=== PATIENT | female | born 1930 | race Caucasian/White ===

== ENCOUNTER 2016-09-08 05:58 | Inpatient (IN) | payer MEDICARE, BC ==
--- NOTE | ~2016-09-08 | HP ---
Unit #: [id number] #: [id number] Patient: CATHY MELLO [id number] [address] [place], [place] [address] [id number] MR#: [id number] NAME: CATHY MELLO ROOM: 547 Age: 86 Sex: F Admission Date: 09/08/2016 : 1930 Attending Physician: Maureen Mcgee M.D. Primary Care Physician: Calderon Fernandez M.D. HISTORY AND PHYSICAL CHIEF COMPLAINT Shortness of breath. HISTORY OF PRESENT ILLNESS Ms. Mello is a very nice 86-year-old female, well known to me, who presents to the [facility] ER this morning with complaints of shortness of breath. The patient states she had been feeling fine since last discharged from this facility on August 13. However, yesterday, particularly at nighttime, she started noting that she was feeling increasingly short of breath. She denies any fever or sick contacts prior to yesterday. She had not had any cough. She denies any new lower extremity edema. She denies any chest pain or palpitations. She states that maybe she has had some orthopnea for the last day or two. However, last night it became significantly worse. She presented to [facility] ER where she was found to have an elevated blood pressure of 228/93. O2 sats were probably low normal with 95% on 2 L of oxygen per nasal cannula. She was afebrile. Examination per ER records indicate the patient had significant crackles in the bases and BNP was found to be elevated at 463. The patient was given 40 mg of IV Lasix, given nitro paste and referred to this facility for CHF. She states she is feeling a bit better after the dose of Lasix. Again, she denies any fever, any sick contacts. She hasn't had any nausea, vomiting or diarrhea. No dysuria, no hematuria and has not had any falls since June. PAST MEDICAL HISTORY 1. Chronic systolic congestive heart failure. Heart cath done last month reveals an ejection fraction of 40% to 45%. 2. Coronary artery disease. Again, heart cath last month revealed proximal/distal LAD had multiple overlapping stents which were all patent. There is 50% stenosis of the diagonal at the ostium. In left circumflex, there was a 50% to 60% stenosis. In the RCA, there was a prior stent which was patent. 3. Hypertension. 4. COPD. 5. Diabetes mellitus type 2, insulin requiring. 6. Chronic kidney disease stage 3 with baseline creatinine approximately 1.1. 7. Stage 4 breast cancer with known involvement of the left iliac bone and right axillary lymph node. 8. Restless leg syndrome. 9. Chronic pain syndrome, maintained on narcotics. 10. Spinal stenosis. 11. Mild memory loss. 12. Obstructive sleep apnea. Unit #: [id number] #: [id number] Patient: CATHY MELLO 13. Obesity. PAST SURGICAL HISTORY Includes: 1. Multiple heart caths, most recent as noted above. 2. 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 3. Cholecystectomy. 4. Hysterectomy. 5. Right hip replacement. ALLERGIES Phenothiazine, penicillin, dextromethorphan, promethazine, morphine. MEDICATIONS Home medications for this list include: 1. Aspirin 81 mg daily. 2. Imdur ER 30 mg daily. 3. Nitrostat 0.4 mg sublingual q.5 minutes p.r.n. for chest pain. 4. Pepcid AC 20 mg b.i.d. 5. Pravachol 80 mg at bedtime. 6. Symbicort 160/4.5 mcg, two puffs twice daily p.r.n. for shortness of breath. 7. Ventolin inhaler, two puffs five times daily p.r.n. for shortness of breath. 8. Vitamin C 500 mg p.o. b.i.d. 9. Daily multivitamin. 10. Mirapex 1 mg p.o. t.i.d. 11. Aldactone 25 mg daily. 12. Vitamin B12 1000 mcg p.o. daily. 13. Lisinopril 20 mg p.o. b.i.d. p.r.n. 14. Neurontin 100 mg at bedtime p.r.n. 15. Letrozole 2.5 mg daily p.r.n. 16. MiraLAX 17 g p.o. daily p.r.n. 17. Brilinta 90 mg p.o. b.i.d. p.r.n. 18. [place] one tablet every six hours p.r.n. for pain. 19. Levemir 25 units subcutaneously each morning. 20. Tylenol 325 mg q.6 hours p.r.n. for pain or fever. I will note that these meds, particularly the p.r.n.'s do not match what was on discharge summary from August 2016, at which point several of these medications were not meant to be p.r.n., namely her Brilinta, her lisinopril, her Symbicort, and her Femara. FAMILY HISTORY Notable for coronary artery disease. SOCIAL HISTORY The patient resides with her at [facility] in [facility]. She does not smoke, she does not drink, she doesn't use any illicit drugs. REVIEW OF SYSTEMS The patient denies any vision changes, any sore throat, denies any fever, denies any significant weight change. Again, denies any chest pain. Does endorse some orthopnea but denies any PND. No reflux, no abdominal pain, no constipation, diarrhea, melena or hematochezia. Denies any falls. Otherwise, ten point review of systems was reviewed and is negative with exception of HPI. Unit #: [id number] #: [id number] Patient: CATHY MELLO PHYSICAL EXAMINATION VITAL SIGNS: Temperature 98.8, blood pressure 167/72, pulse rate 66, respiratory rate 23. Oxygen saturation is in the mid 90s on 2 L of oxygen per nasal cannula. GENERAL: The patient is awake, she is alert. She is oriented x3 currently. HEENT: Pupils equally round, reactive to light bilaterally. Anicteric sclerae. Mild conjunctival pallor. Oropharynx reveals some mildly dry mucous membranes. No erythema or exudate. NECK: Supple. No lymphadenopathy, no thyromegaly, no JVD. HEART: Regular rate and rhythm without murmur, rub or gallop. LUNGS: Crackles in the bases bilaterally but otherwise clear without wheezing. ABDOMEN: Soft, nontender, nondistended. Positive bowel sounds. Perhaps mildly distended. EXTREMITIES: No cyanosis, clubbing, or edema. Pedal pulses 2/4. SKIN: Warm. It is dry on all four extremities. There is no obvious rash. MUSCULOSKELETAL: Prior right transmetatarsal amputation noted but otherwise no significant joint abnormalities grossly. There is no erythema, no purulence. NEUROLOGICAL: Cranial nerves II-XII intact. Sensation, strength and deep tendon reflexes are all grossly normal. Gait was not assessed. PSYCHIATRIC: Again, alert and oriented x3. No suicidal or homicidal ideation. DIAGNOSTIC STUDIES CARDIOVASCULAR: EKG done at [facility] reveals normal sinus rhythm with Q wave in V1 only. No other acute ST or T wave abnormalities. This EKG is unchanged from a prior EKG of August 04/2017. LABORATORY: Lab work reveals a white blood cell count of 9.5, hemoglobin 9.9, platelet count of 284,000. Sodium 127, potassium 3.3, chloride 93, bicarb 33, BUN 22, creatinine 0.8, glucose of 138. Calcium mildly low at 8.1. Otherwise, LFTs are all normal. BNP elevated at 463. Initial troponin is negative. IMAGING: Chest x-ray done at [facility] shows cardiomegaly and bibasilar small pleural effusions with associated encephalization. ASSESSMENT 1. Acute on chronic systolic congestive heart failure with ejection fraction of 40% to 45%. 2. Hypertensive urgency which may be a precipitating factor for her congestive heart failure. 3. Hyponatremia, likely hypervolemic in origin. 4. Hypokalemia. 5. Acute respiratory failure secondary to pulmonary edema. 6. Hypocalcemia. 7. History of coronary artery disease. 8. Stage 4 breast cancer, currently being maintained on oral chemotherapy. 9. Chronic obstructive pulmonary disease. 10. History of chronic kidney disease. 11. Diabetes mellitus type 2, insulin requiring. 12. Restless leg syndrome. Unit #: [id number] #: [id number] Patient: CATHY MELLO 13. Hyperlipidemia. PLAN 1. Will admit patient to telemetry. 2. I will place patient on IV Lasix which will hopefully improve respiratory status. I am also going to add a low dose of beta delia, namely her Coreg, and monitor her pulse rate closely. Will continue JASPREET inhibitor scheduled rather than p.r.n. and continue patient's Aldactone. If she has any complications, I will contact cardiology. 3. Will again reinitiate patient's lisinopril in regards to her hypertension, add a low dose Coreg, keep her on Lasix and Aldactone and monitor blood pressure closely. 4. Will follow up sodium level later today with BMP and again check in the morning as well. 5. Will place patient on K-mag protocol and replace potassium which is high risk for remaining low given her IV Lasix. 6. Will place patient on calcium supplementation. 7. Will titrate O2 for sats greater than or equal to 90%. I do think patient has some underlying obstructive sleep apnea and should use her oxygen at night and needs outpatient polysomnography. 8. Will continue medications for COPD including Symbicort scheduled b.i.d. Will also provide Duo-Neb nebulizer treatments q.6 hours p.r.n. for shortness of breath. 9. Continue home medications for coronary artery disease, breast cancer, diabetes and restless leg syndrome in addition to hyperlipidemia. 10. Lovenox for DVT prophylaxis. Dictated by Olga Zuluaga M.D. CHARLENE/robert TD: 09/08/2016 09:55 JOB #: [id number] HISTORY AND PHYSICAL X Olga Zuluaga MD HISTORY AND PHYSICAL
--- NOTE | ~2016-09-08 | CR72 ---
[facility]. [facility] A Service of [facility] & [facility] / [facility] RADIOLOGY TEXT RESULTS PATIENT: CATHY MELLO LOCATION: [facility] 547- : 32 UNIT #: [id number] AGE: [address]: Maureen Mcgee MD SEX: F ORDER DR: [id number] [address] [address] [id number] MR#: [id number] Acc #: [id number] NAME: CATHY MELLO : 1930 SEX: F STUDY DATE/TIME: 09/08/2016 5:47 UNIT: SED ROOM: STUDY DESCRIPTION: CR Chest Single View Portable Attending Physician: Aldo Lisa M.D. Ordering Physician: Aldo Lisa M.D. Primary Care Physician: Calderon Fernandez M.D. MEDICAL IMAGING REPORT This report is preliminary unless electronic signature is present. EXAM Portable chest. HISTORY Shortness of air for one day. COMPARISON 08/10/2016 FINDINGS Today's portable view of the chest shows new bilateral lower lobe infiltrates and atelectasis and there is stable mild cardiomegaly. The upper lobes are clear. Dictated by... Daniel Varma M.D. THIS IS AN ELECTRONICALLY VERIFIED REPORT Daniel Varma M.D. at 09/08/2016 2:16 PM HUMZA/kaden TD: 09/08/2016 08:48 JOB #: [id number] MEDICAL IMAGING REPORT
--- NOTE | ~2016-09-08 | EKG ---
PATIENT: CATHY MELLO UNIT #: [id number] Ventricular Rate: 72 BPM Atrial Rate: 150 BPM QRS Duration: 98 ms Q-T Interval: 412 ms QTC Calculation(Bezet): 451 ms Calculated R [place]: 3 degrees Calculated T [place]: 143 degrees Diagnosis Line: Unusual P axis, possible ectopic atrial rhythm Diagnosis Line: ST and T wave abnormality, consider lateral ischemia Diagnosis Line: Abnormal ECG Diagnosis Line: When compared with ECG of 13-AUG-2016 10:26, Diagnosis Line: Current undetermined rhythm precludes rhythm Diagnosis Line: comparison, needs review Diagnosis Line: Confirmed by DARRELL SAUNDERS MD ([id number]) on 09/08/2016 Diagnosis Line: 5:37:33 PM INTERPRETING MD: NICKY SHARIF
--- NOTE | ~2016-09-08 | DS ---
Unit #: [id number] #: [id number] Patient: CATHY MELLO [id number] [address] [address] [id number] I MR#: [id number] NAME: CATHY MELLO ROOM: 547 Age: 86 Sex: F Admission Date: 09/08/2016 : 1930 Discharge Date: 09/09/2016 Attending Physician: Olga Zuluaga M.D. Primary Care Physician: Calderon Fernandez M.D. DISCHARGE SUMMARY PRIMARY CARE PROVIDER Dr. Fernandez. PRINCIPAL DIAGNOSES 1. Acute on chronic systolic congestive heart failure with ejection fraction of 40% to 45%. 2. Severe hypertensive urgency. 3. Hypervolemic hyponatremia, now resolved. 4. Acute hypoxic respiratory failure secondary to acute on chronic systolic congestive heart failure, now resolved. 5. Hypokalemia. 6. B12 deficiency of vitamin B12 level of 246. 7. Chronic anemia. 8. Stage IV breast cancer, maintained on oral chemotherapy. 9. Chronic obstructive pulmonary disease. 10. Chronic nocturnal hypoxia, maintained on oxygen at 2 L per nasal cannula continuously. 11. Coronary artery disease. 12. Hypocalcemia. 13. Chronic kidney disease, stage 3. Discharge creatinine 0.8. 14. Diabetes mellitus, type 2, insulin requiring, controlled. 15. Restless legs syndrome. 16. Hyperlipidemia. 17. Chronic immobility. 18. Gastroesophageal reflux disease. 19. Mild memory loss with questionable medication compliance. CONSULTANTS None. PROCEDURES Chest x-ray on 09/08/2016 with bilateral lower lobe infiltrate and atelectasis with stable cardiomegaly. CLINICAL HISTORY AND HOSPITAL COURSE Ms. Mello is a very nice 86-year-old female, who presented to the emergency department with an abrupt onset of shortness of breath. In the emergency department, the patient was found have significant crackles on exam and BNP was elevated at 463. The patient was subsequently admitted. The patient was placed on IV Lasix and this morning, states she feels quite a bit better. She has had a traumatic urine output. She states she Unit #: [id number] #: [id number] Patient: CATHY MELLO has been drinking a little bit more water at home than normal. She thinks this has precipitated this event. She states she is also taking Lasix at home, but interestingly enough it did not make her medication list nor is it listed in discharge medications from her discharge in early 08/2016. I am going to place her back on Lasix. We will have to monitor potassium level closely. She is on JASPREET inhibitor at home. It is unclear whether she is taking this scheduled or p.r.n. which was listed in her med rec and she is also on the spironolactone; however, she still came in hyperkalemic. I am going to place her on a low dose of potassium and we can have potassium checked early next week. Only the significant finding during hospitalization is that she is B12 deficient at 246. I am going to place her on oral supplementation and she may benefit from injections in the office. Hemoglobin upon presentation appeared to be at patient's baseline of 9.9, however, today with diuresis, this is down to 8.2. I am going to recheck hemoglobin later today to ensure that it is stable and/or to determine if morning lab was an error. I have also noted that hyponatremia resolved with diuresis. DISCHARGE CONDITION Stable. DISCHARGE STATUS Discharged to home with home health. She has an RN for blood pressure monitoring and lab draws and she has PT/OT. DISCHARGE MEDICATIONS Ventolin inhaler 2 puffs q.i.d. p.r.n. for shortness of breath, oxygen at 2 L per nasal cannula at bedtime, Symbicort 160/4.5 mcg 2 puffs b.i.d., Neurontin 100 mg at bedtime, letrozole 2.5 mg daily, Mirapex 1 g p.o. t.i.d., MiraLAX 17 g p.o. daily p.r.n. for constipation, Lasix 40 mg p.o. b.i.d., Pravachol 80 mg at bedtime, lisinopril 20 mg b.i.d., Levemir 25 units subcutaneously each morning, daily multivitamin, aspirin 81 mg daily, [place] 5/325 one tablet p.o. q.6 hours p.r.n. for pain, Brilinta 90 mg p.o. b.i.d., spironolactone 25 mg daily, Os-Angus 500 plus D one b.i.d., Imdur ER 30 mg daily, nitroglycerin 0.4 mg sublingual q.5 minutes p.r.n. for chest pain, vitamin C 500 mg b.i.d., vitamin B12 1000 mcg p.o. daily, potassium chloride 20 mEq p.o. daily. DISCHARGE INSTRUCTIONS The patient was instructed to follow a heart healthy, 1800 mL fluid restricted diet. She should also monitor her carbohydrate intake. She should continue Accu-Cheks at least b.i.d. at home, one fasting and one 2 hours postprandial to monitor insulin dosing. She can increase her activity as tolerated under the care of physical and occupational therapy. She should perform daily weights at home as well. FOLLOWUP The patient needs followup basic metabolic panel on 09/12/2016 to monitor potassium levels. This can be faxed either to my office or to the patient's primary care provider. She should follow up with Cardiology as previously determined in early 08/27/2016. She will follow up with Dr. Fernandez in 3 weeks. Time spent on discharge 37 minutes. Unit #: [id number] #: [id number] Patient: CATHY MELLO Dictated by... Olga Zuluaga M.D. CHARLENE/armando TD: 09/11/2016 05:05 JOB #: [id number] DISCHARGE SUMMARY X Olga Zuluaga MD X DISCHARGE SUMMARY
[2016-09-08 05:47] LABS: BASOPHIL# 0.1 X10e3 (0-0.3); BASOPHIL% 0.7 % (0-2.5); EOSINOPHIL# 0.3 X10e3 (0-0.7); EOSINOPHIL% 2.8 % (0.0-7.0); HEMATOCRIT 30.6 % (35.0-45.0); HEMOGLOBIN 9.9 gm/dL (12.0-16.0); LYMPHOCYTE# 0.9 X10e3 (1.0-3.5); LYMPHOCYTE% 9.5 % (17.0-45.0); MEAN CELL VOLUME 87.5 FL (83-96); MEAN CORPUSCULAR HEMOGLOBIN 28.4 PG (28-34); MEAN CORPUSCULAR HGB CONC 32.5 g/dL (30-36); MEAN PLATELET VOLUME 7.1 FL (6.5-11.5); MONOCYTE# 0.4 X10e3 (0-1.0); MONOCYTE% 4.4 % (3.0-12.0); NEUTROPHIL# 7.9 X10e3 (1.5-7.1); NEUTROPHIL% 82.6 % (40-75); PLATELET COUNT 284 X10e3 (140-420); RED CELL DISTRIBUTION WIDTH 17.3 % (11.0-15.5); WHITE BLOOD COUNT 9.5 X10e3 (4.0-10.5)
[2016-09-08 05:48] LABS: DIFF IND NO
[2016-09-08 05:51] LABS: INR 1.1; PROTHROMBIN TIME (PATIENT) 11.9 SECONDS (9.5-12.4)
[~2016-09-08 05:58] MED LIST: ACETAMINOPHEN PO; ACTOSPLUSMET; ALBUTEROL17 GM INH; ALDACTONE25 MG PO; AMARYL PO; AMLODIPINE BESY10 MG PO; AMLODIPINE BESYL5 MG PO; APRESOLINE10 MG PO; ASPIR-TRIN325 MG PO; ASPIRIN EC81 M1 PO; ASPIRIN ENTERI325 M1 PO; ASPIRIN PO; ASPIRIN81 MG PO; ATENOLOL PO; ATENOLOL25 MG PO; ATENOLOL50 MG PO; AVANDIA PO; AZITHROMYCIN500 MG PO; BENADRYL ANTI-I85 GM TOP; BRILINTA90 MG PO; CERTAVITE W/LUT1 TA1 PO; CLOPIDOGREL75 MG PO; COREG6.25 MG PO; CYANOCOBALAM1000 MCG PO; DARVOCET-N 1001 TAB PO; DESENEX45 G1 EXT; ENDOCET 5-3251 EACH PO; FEMARA2.5 MG PO; FLEXERIL PO; FLORANEX T1 TAB.CHE3 PO; GLUCOPHAGE XR500 MG PO; GLUCOPHAGE500 M1 PO; GLUCOPHAGE850 MG PO; GNP THERAPEUTI1 EACH PO; HCTZ PO; HUMALOG100 U/M1 SUBQ; HYDRALAZINE HCL10 MG PO; ILEVRO1.7 ML OP; IMDUR PO; IMDUR-ER30 M1 PO; IMDUR-ER30 MG PO; IMDUR120 MG PO; ISOSORBIDE MON120 M1 PO; K-LOR20 MEQ PO; KEFLEX500 M1 PO; LANTUS SOLOSTAR3 ML SUBQ; LASIX PO; LASIX20 MG PO; LASIX80 MG PO; LEVAQUIN750 MG PO; LEVEMIR SUBQ; LISINOPRIL PO; LISINOPRIL20 MG PO; LORTAB 5/500 TA1 TA1 PO; MEDROL DOSEPAK4 MG PO; MELATONIN1 MG PO; MERREM1 G/VIA1 IV; METFORMIN HCL850 MG PO; MIRALAX119 GM PO; MIRALAX17 GM PO; MIRAPEX PO; MIRAPEX1 MG PO; NEURONTIN100 MG PO; NIACIN500 M1 PO; NIASPAN PO; NIASPAN750 MG PO; NITRO PUMP SL; NITROGLYGERIN0.4 MG SL; NITROGYLCERIN SUBLINGUAL; NITROSTAT0.4 MG SL; NORCO1 TAB 10/3 PO; NORVASC PO; NOVOLIN 70/30 V10 M1 SUBQ; NOVOLIN 70100 UNITS/; NOVOLIN 70100 UNITS/ SUBQ; PATIENT'S PHARMACY; PEPCID AC20 M2 PO; PERCOCET PO; PERCOCET5/325 PO; PLAVIX PO; PRAMIPEXOLE DIHY1 MG PO; PRAVACHOL80 MG PO; PRAVASTATIN SOD40 MG PO; PRED FORTE1 ML OP; PREDNISONE10 MG/DOSE PO; PRINIVIL40 MG PO; PROAIR HFA8.5 GM IH; PROVENTIL; RANEXA PO; REQUIP1 MG PO; REQUIP2 MG PO; SIMVASTATIN40 MG PO; SOF-LAX100 MG PO; SPIRONOLAC1 TAB 25/2 PO; SYMBICORT INH; TAMIFLU75 M1 PO; TENORMIN50 MG PO; TYL325 PO; TYLENOL325 M1 PO; VIBRAMYCIN100 M1 PO; VIGAMOX3 M1 OP; VITAMIN A TOP; VITAMIN C500 MG PO; VYTORIN 10/10 T1 TAB PO; ZESTORETIC 20/21 TAB PO; ZESTRIL2.5 M1 PO; ZESTRIL40 MG PO; ZITHROMAX PO; ZOCOR PO; ZOFRAN PO; ZYVOX600 MG PO; [UNRECOGNIZED DRUG - OTHER] TOP
[2016-09-08 05:59] LABS: PARTIAL THROMBOPLASTIN TIME 30.6 SECONDS (25.6-38.1)
[2016-09-08 06:03] LABS: ALBUMIN SERUM 3.6 g/dL (3.5-5.0); ALKALINE PHOSPHATASE 122 U/L (32-92); ALT (SGPT) 22 U/L (10-40); AST (SGOT) 22 U/L (10-42); BILIRUBIN,TOTAL 0.8 mg/dL (0.2-2.0); BLOOD UREA NITROGEN 22 mg/dL (9-23); CALCIUM SERUM 8.1 mg/dL (8.4-10.2); CARBON DIOXIDE 33 mmol/L (22-31); CHLORIDE 93 mmol/L (100-111); CREATININE SERUM 0.8 mg/dL (0.6-1.4); GLOM FILT RATE Estimated ABOVE60 mL/min (>60); GLUCOSE FASTING 138 mg/dL (70-110); POTASSIUM 3.3 mmol/L (3.5-5.1); PROTEIN TOTAL SERUM 7.7 g/dL (6.0-8.3); SODIUM 127 mmol/L (135-145)
[2016-09-08 06:04] LABS: BILIRUBIN, DIRECT <0.1 mg/dL (0.0-0.2); BILIRUBIN,INDIRECT 0.7 mg/dL (0.0-0.9)
[2016-09-08 06:26] LABS: POC - CKMB 1.6 ng/mL (0.0-7.9); POC - MYOGLOBIN 72.6 ng/mL (0.0-169.0); POC - TROPONIN <0.05 ng/mL (<=0.05)
[2016-09-08 14:55] LABS: BLOOD UREA NITROGEN 24 mg/dL (9-23); BUN/CREATININE RATIO 26.66; CALCIUM SERUM 8.5 mg/dL (8.4-10.2); CARBON DIOXIDE 35 mmol/L (22-31); CHLORIDE 101 mmol/L (100-111); CREATININE SERUM 0.9 mg/dL (0.6-1.4); GLOM FILT RATE Estimated ABOVE60 mL/min (>60); GLUCOSE FASTING 181 mg/dL (70-110)
[2016-09-08 14:57] LABS: SODIUM 140 mmol/L (135-145)
[2016-09-08 15:16] LABS: MAGNESIUM 2.1 mg/dL (1.6-3.0)
[2016-09-09 06:14] LABS: HEMATOCRIT 25.1 % (35.0-45.0); HEMOGLOBIN 8.2 gm/dL (12.0-16.0); MEAN CELL VOLUME 88.2 FL (83-96); MEAN CORPUSCULAR HEMOGLOBIN 28.8 PG (28-34); MEAN CORPUSCULAR HGB CONC 32.7 g/dL (30-36); MEAN PLATELET VOLUME 7.7 FL (6.5-11.5); RED BLOOD COUNT 2.85 X10e (3.90-5.30); RED CELL DISTRIBUTION WIDTH 16.9 % (11.0-15.5); WHITE BLOOD COUNT 7.8 X10e3 (4.0-10.5)
[2016-09-09 06:39] LABS: BLOOD UREA NITROGEN 26 mg/dL (9-23); CALCIUM SERUM 8.8 mg/dL (8.4-10.2); CARBON DIOXIDE 34 mmol/L (22-31); CHLORIDE 100 mmol/L (100-111); CREATININE SERUM 0.8 mg/dL (0.6-1.4); GLOM FILT RATE Estimated ABOVE60 mL/min (>60); GLUCOSE FASTING 88 mg/dL (70-110); MAGNESIUM 2.1 mg/dL (1.6-3.0); POTASSIUM 3.5 mmol/L (3.5-5.1); SODIUM 141 mmol/L (135-145)
[2016-09-09] MEDS ORDERED: KLOR-CON PO (11:27)
[2016-09-09] MEDS ORDERED: FUROSEMIDE40 MG PO (11:27)
[2016-09-09] MEDS ORDERED: COREG3.125 MG PO (11:27)
[2016-09-09 12:32] LABS: HEMATOCRIT 28.2 % (35.0-45.0); HEMOGLOBIN 9.4 gm/dL (12.0-16.0)
[2016-09-09] MEDS ORDERED: CALCIUM 500 +1 EAC5 PO (13:05)
[2016-10-13] MEDS ORDERED: PROAIR HFA8.5 GM (21:28)
[2016-10-13] MEDS ORDERED: ASPIRIN81 MG PO (21:29)
[2016-10-13] MEDS ORDERED: SYMBICORT 16010.2 GM INH (21:29)
[2016-10-13] MEDS ORDERED: OS-CAL 500500 MG PO (21:30)
[2016-10-13] MEDS ORDERED: CARVEDILOL6.25 MG PO (21:30)
[2016-10-13] MEDS ORDERED: CLOPIDOGREL75 MG PO (21:30)
[2016-10-13] MEDS ORDERED: LASIX20 MG PO (21:31)
[2016-10-13] MEDS ORDERED: NEURONTIN PO (21:31)
[2016-10-13] MEDS ORDERED: AMARYL2 MG PO (21:32)
[2016-10-13] MEDS ORDERED: TOUJEO SOL300 UNIT/1 SUBQ (21:33)
[2016-10-13] MEDS ORDERED: NOVOLOG100 UNIT/1 SUBQ (21:33)
[2016-10-13] MEDS ORDERED: LEVEMIR100 UNITS/ SUBQ (21:33)
[2016-10-13] MEDS ORDERED: FEMARA2.5 MG PO (21:34)
[2016-10-13] MEDS ORDERED: LISINOPRIL20 MG PO (21:34)
[2016-10-13] MEDS ORDERED: IMDUR-ER30 M1 PO (21:34)
[2016-10-13] MEDS ORDERED: HUMALOG100 UNIT/2 (21:34)
[2016-10-13] MEDS ORDERED: NITROSTAT0.4 MG SL (21:35)
[2016-10-13] MEDS ORDERED: MIRAPEX1 MG PO (21:35)
[2016-10-13] MEDS ORDERED: K-TAB ER20 MEQ PO (21:35)
[2016-10-13] MEDS ORDERED: PRAVACHOL80 MG PO (21:36)
[2016-10-13] MEDS ORDERED: MAGIC BARRIER CREAM TOP (21:36)
[2016-10-13] MEDS ORDERED: ALDACTONE25 MG PO (21:36)
[2016-10-13] MEDS ORDERED: MINERALS PO (21:37)
[2016-10-13] MEDS ORDERED: VITAMIN C PO (21:37)
[2016-10-13] MEDS ORDERED: VITAMIN PO (21:37)
== END 2016-09-09 17:29 | disposition home health service (06) | DRG 291 ==
LOC: SED 05:58 → C5B 09:40
PROVIDERS: Emergency Medicine; Internal Medicine
DX: I50.23 Acute on chronic systolic (congestive) heart failure (principal); J96.01 Acute respiratory failure with hypoxia; E86.1 Hypovolemia; E87.1 Hypo-osmolality and hyponatremia; E11.22 Type 2 diabetes mellitus with diabetic chronic kidney disease; E53.8 Deficiency of other specified B group vitamins; C50.919 Malignant neoplasm of unspecified site of unspecified female breast; I13.0 Hypertensive heart and chronic kidney disease with heart failure and stage 1 through stage 4 chronic kidney disease, or unspecified chronic kidney disease; I16.0 Hypertensive urgency; E87.6 Hypokalemia; D64.9 Anemia, unspecified; J44.9 Chronic obstructive pulmonary disease, unspecified; I25.10 Atherosclerotic heart disease of native coronary artery without angina pectoris; E83.51 Hypocalcemia; N18.3 Chronic kidney disease, stage 3 (moderate); G25.81 Restless legs syndrome; E78.5 Hyperlipidemia, unspecified; D63.1 Anemia in chronic kidney disease; K21.9 Gastro-esophageal reflux disease without esophagitis; G89.4 Chronic pain syndrome; G47.33 Obstructive sleep apnea (adult) (pediatric); E66.9 Obesity, unspecified; Z88.0 Allergy status to penicillin; Z88.5 Allergy status to narcotic agent; Z88.8 Allergy status to other drugs, medicaments and biological substances; Z90.710 Acquired absence of both cervix and uterus; Z79.4 Long term (current) use of insulin
CPT/HCPCS: 51703; 71010; 80048; 80076; 82553; 82607; 82947; 83540; 83550; 83735; 83874; 83880; 84484; 85014; 85018; 85025; 85027; 85610; 85730; 93005; 94640; 94760; 96374; 97110; 97116; 97162; 97165; 97530; 99291; G8978-GP; G8979-GP; G8987-GO; G8988-GO; G8989-GO; J1650; J1815; J1940

== ENCOUNTER 2016-10-13 22:29 | Inpatient (IN) | payer MEDICARE, BC ==
--- NOTE | ~2016-10-13 | HP ---
Unit #: [id number] #: [id number] Patient: CATHY MELLO [id number] [address] [place], [place] [address] [id number] I MR#: [id number] NAME: CATHY MELLO ROOM: 567 Age: 86 Sex: F Admission Date: 10/13/2016 : 1930 Attending Physician: Maureen Mcgee M.D. Primary Care Physician: Calderon Fernandez M.D. HISTORY AND PHYSICAL CHIEF COMPLAINT Decompensated congestive heart failure with acute hypoxic respiratory failure, uncontrolled diabetes mellitus, and accelerated hypertension. HISTORY This pleasant 86-year-old female with ischemic cardiomyopathy, AODM, hypertension, COPD, is admitted for congestive heart failure. The patient states that she was in her usual state of health until this afternoon. Apparently her lungs were clear earlier in the day. This afternoon she developed sudden onset of shortness of breath. Also notes increasing pedal edema. Denies chest pain with the above. When EMS arrived, the patient's O2 saturation was 60%. She was given nebulizer, further oxygen, and was brought to this emergency department with an O2 sat of 69% on oxygen. BiPAP was immediately placed. The patient's blood pressure was noted to be 193/91 and she was given 40 mg of IV Lasix along with an inch of nitro paste with improvement of her blood pressure. Her serum glucose was 435 and she was given supplemental insulin. She currently is feeling much improved. I have been able to remove her BiPAP. Exam and chest x-ray consistent with congestive heart failure. Again, the patient denies chest pain with the above. PAST MEDICAL HISTORY 1. Ischemic cardiomyopathy, ejection fraction about 35%. Cardiac catheterization 08/2016 revealed proximal/distal LAD had multiple overlapping stents which were all patent. 50% stenosis of diagonal of the ostium. In the circumflex, there was 50% to 60% stenosis, patent stent in the RCA. 2. Hypertension. 3. COPD. 4. AODM requiring insulin. 5. Chronic kidney disease with GFR of about 40s to 50s. 6. Stage 4 breast cancer with known involvement of the left iliac bone and right axillary lymph node. 7. Restless leg syndrome. 8. Chronic pain syndrome. 9. Spinal stenosis. 10. Mild memory loss. 11. Obstructive sleep apnea. 12. 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 13. Cholecystectomy. 14. Hysterectomy. 15. Right hip replacement. Unit #: [id number] #: [id number] Patient: CATHY MELLO 16. Cataract extraction. 17. Right arm surgery. ALLERGIES Phenergan, penicillin, dextromethorphan, sulfa. The patient is not allergic to morphine, it just does not help her pain. HOME MEDICATIONS 1. Albuterol as needed. 2. Aspirin 81 mg daily. 3. Symbicort 160/4.5, two puffs b.i.d. 4. Os-Angus daily. 5. Coreg 6.25 mg b.i.d. 6. Plavix 75 mg daily. 7. Lasix 40 mg, two in the morning, one in the evening. 8. Neurontin 100 mg q. h.s. 9. Amaryl 2 mg q. a.m. 10. Levemir q. h.s. 11. Medium sliding scale Humalog. 12. Imdur 30 mg daily. 13. Femara 2.5 mg daily. 14. Lisinopril 20 mg daily. 15. Nitroglycerin p.r.n. chest pain. 16. Potassium 20 mEq daily. 17. Mirapex 1 mg t.i.d. 18. Pravachol 80 mg daily. 19. Spironolactone 25 mg daily. 20. Vitamins. FAMILY HISTORY CAD. SOCIAL HISTORY The patient lives with her at [facility]. She is a lifelong nonsmoker, does not drink alcohol. REVIEW OF SYSTEMS Notable for sudden shortness of breath, pedal edema, congestive heart failure, ischemic cardiomyopathy, hypertension, COPD, AODM, chronic kidney disease, breast cancer, restless leg syndrome, LISA, above mentioned surgeries. All other systems were reviewed and are negative. PHYSICAL EXAMINATION GENERAL APPEARANCE: Pleasant 86-year-old female who currently is in no acute distress. VITAL SIGNS: Temperature 99.6, initial heart rate 114, currently is 80, respirations 22. Initial blood pressure 193/91, currently is 146/61. Current O2 saturation is 90% on 4 L of oxygen. Initial O2 saturation was 69% on room air. HEENT: Eyes PERRLA. Extraocular muscles are intact. Pharynx is benign. NECK: Supple without adenopathy or thyromegaly. Elevated JVD. CHEST: Crackles bilaterally. CARDIAC: Normal S1 and S2 without definite murmur. ABDOMEN: Bowel sounds are present. No hepatosplenomegaly, tenderness or masses. EXTREMITIES: Notable for bilateral edema, status post transmetatarsal right foot with clean, dry stump. No ulcers left foot. NEUROLOGIC EXAM: The patient is awake, alert, oriented. Cranial nerves Unit #: [id number] #: [id number] Patient: CATHY MELLO are intact. Equal strength throughout but weak on exam. DIAGNOSTIC STUDIES LABORATORY: Hematocrit 32.4 which is improved. White blood cell count is 12.8. Normal MCV and platelet count. SMA-12 - glucose 435, BUN 47, alkaline phos. 142. BNP 515. Cardiac markers are negative. IMAGING: Chest x-ray - cardiomegaly, congestive heart failure. CARDIOVASCULAR: EKG - sinus tachycardia, rate 102 with T wave inversions, I and AVL. Somewhat poor R wave progression. Q's noted III and AVF. ASSESSMENT 1. Decompensated systolic congestive heart failure with acute hypoxic respiratory failure: Of note, the patient's initial ABG - pH 7.35, pCO2 55.6, pO2 90.5 on BiPAP 12/5. However, O2 saturation is 90% to 91% on 4 L of oxygen. She is breathing much easier after nitro paste and Lasix. 2. Accelerated hypertension, now improved. 3. Ischemic cardiomyopathy with patent stents noted last cardiac catheterization, ejection fraction about 35%. 4. Uncontrolled adult onset diabetes mellitus. 5. Accelerated hypertension. 6. Chronic obstructive pulmonary disease. 7. Chronic kidney disease. 8. Metastatic breast cancer, considered stage 4. 9. Restless leg syndrome. 10. Peripheral vascular disease. 11. Obstructive sleep apnea. PLANS 1. IV Lasix. Will continue to obtain I's and O's and daily weights along with serial cardiac enzymes and consultation with edge beader. 2. Diabetic control. 3. Obtain urinalysis. 4. DVT prophylaxis. 5. Repeat all labs in the morning. Dictated by Maureen Mcgee M.D. ROSALBA/robert TD: 10/14/2016 05:07 JOB #: [id number] Unit #: [id number] #: [id number] Patient: CATHY MELLO HISTORY AND PHYSICAL Page 1 of 1 X Maureen Mcgee MD HISTORY AND PHYSICAL
--- NOTE | ~2016-10-13 | CO ---
Unit #: [id number] #: [id number] Patient: CATHY MELLO [id number] [address] [place], [place] [address] [id number] I MR#: [id number] NAME: CATHY MELLO ROOM: 567 Age: 86 Sex: F Admission Date: 10/13/2016 : 1930 Attending Physician: Nataly Contreras M.D. Primary Care Physician: Calderon Fernandez M.D. Consultation Date: 10/14/2016 CONSULTATION REPORT REASON FOR CONSULT Congestive heart failure. HISTORY OF PRESENT ILLNESS This is a pleasant 86-year-old female who typically follows with Dr. Thapa. She has a past medical history of known coronary artery disease with stents, diastolic heart failure, COPD, hypertension, diabetes mellitus, hyperlipidemia, chronic kidney disease, paroxysmal atrial fibrillation and breast cancer, which is stage IV with iliac bone metastasis. The patient is followed by Dr. Andrade and is on letrozole. According to the patient, she was in her typical state of health at home until yesterday. She states home health [facility] had been seeing her, had been out earlier in the day, and the patient was doing okay. Her lungs were clear. However, around 4 p.m. in the afternoon, the patient developed sudden onset shortness of breath. States she was gasping for air. She denied any complaints of palpitations, chest pain, orthopnea or PND. She does report she has been noticing some lower extremity swelling and increasing fatigue over the last few days. EMS was called. On arrival to the emergency room, the patient's oxygen saturations were in the 60s. She was given increased oxygen and nebulizer treatment. Also started on BiPAP. At that time her blood pressure was elevated, and she was given a onetime dose of IV Lasix with some nitro paste. On admission she was also found to have an elevated blood glucose of 435. Chest x-ray was performed and was consistent with congestive heart failure. EKG was performed, which shows sinus rhythm at 102 beats per minute, incomplete right bundle branch block. There is approximately 0.[address] segment depression in the inferolateral leads. The patient denies any complaints of chest pain. Izwdw-ad-pifs troponin, thus far, has been negative. Of note, the patient underwent cardiac catheterization on August 12, 2016 and was found to have a left main that was normal. LAD with multiple overlapping stents, which were patent. The diagonal 2 and 3 had a 50% stenosis, left circumflex had a 50% to 60% stenosis, and the RCA had a patent stent. Posterior lateral branch of distal RCA has 80% stenosis. Vessel size is small, not suitable for PCI. She also had a two-D echocardiogram 08/11/2016, which showed an LVEF of 30% to 35%, impaired relaxation, ggxy-co-tptxaxrz mitral regurgitation with Unit #: [id number] #: [id number] Patient: CATHY MELLO jet, mild tricuspid regurgitation with an RVSP of 41 mmHg. We were asked to see for medical management of her congestive heart failure. PAST MEDICAL HISTORY 1. Hypertension. 2. Known coronary artery disease with multiple stents placed. 3. Cardiac cath, 08/12/2016, showed left main normal, LAD with multiple overlapping stents, which were patent. The diagonal 2 and 3 with 50% stenosis. Left circumflex 50% to 60%. RCA stent was patent. Posterior lateral branch of distal RCA has 80% stenosis. Vessel size is small, not suitable for PCI. 4. Two-D echocardiogram, 08/11/16, showed LVEF of 30% to 35%, impaired relaxation, olxa-mz-byavcnuj mitral regurgitation with jet, mild tricuspid regurgitation with an RVSP of 41 mmHg. 5. COPD. 6. Diabetes mellitus. 7. Hyperlipidemia. 8. Chronic kidney disease. 9. Ischemic cardiomyopathy. 10. 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 Andrade. 11. Chronic pain syndrome. 12. Obstructive sleep apnea. PAST SURGICAL HISTORY 1. Cardiac catheterization. 2. 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 3. Cholecystectomy. 4. Hysterectomy. 5. Right hip replacement. 6. Cataract surgery. 7. Right arm surgery. ALLERGIES Phenergan (tremors), penicillin, dextromethorphan and sulfa. HOME MEDICATIONS 1. ProAir HFA. 2. Aspirin 81 mg daily. 3. Symbicort 160/4.5 mcg 2 puffs inhalation b.i.d. 4. Os-Angus 500 mg p.o. daily. 5. Carvedilol 6.25 mg p.o. b.i.d. 6. Plavix 75 mg p.o. daily. 7. Lasix 40 mg p.o. daily. 8. Neurontin 100 mg p.o. q.h.s. 9. Amaryl 2 mg p.o. at breakfast. 10. NovoLog as needed. 11. Levemir 25 units subcu at bedtime. 12. Toujeo subcu. 13. Humalog sliding scale. 14. Imdur 30 mg p.o. daily. 15. Letrozole 2.5 mg p.o. daily. 16. Lisinopril 20 mg p.o. daily. 17. Nitrostat sublingual as needed. 18. Potassium chloride 20 mEq p.o. daily. 19. Mirapex 1 mg p.o. t.i.d. 20. Pravachol 80 mg p.o. daily. 21. Aldactone 25 mg p.o. daily. Unit #: [id number] #: [id number] Patient: CATHY MELLO 22. Magic Barrier Cream topical as needed. 23. Ascorbic acid 500 mg p.o. b.i.d. 24. Vitamin 1 tab p.o. daily. FAMILY HISTORY Denies coronary artery disease in her family. However, the patient does have some problems with memory. She reports her mother had diabetes mellitus. SOCIAL HISTORY The patient lives with her at [facility]. She is a lifelong nonsmoker. Denies illicit drugs or alcohol. REVIEW OF SYSTEMS Review of systems is negative except for what was stated above in the HPI. PHYSICAL EXAM GENERAL: This is a pleasant 86-year-old elderly female who is currently in no acute distress. VITAL SIGNS: Temperature max 99.6, respiratory rate 18-20, pulse 78, blood pressure 124/93 to 154/54, BMI 27. She is currently on 4 liters nasal cannula with saturation 94%. HEENT: Pupils are equal and round. Extraocular muscles are intact. Pharynx is benign. Mucous membranes are moist. NECK: Supple. Positive JVD. Trachea is midline. No lymphadenopathy. HEART: S1, S2. Systolic murmur best heard at the apex. CHEST: Clear anterior. Crackles bilaterally. ABDOMEN: Soft, nontender, nondistended. Bowel sounds are present. EXTREMITIES: Positive for bilateral lower extremity edema. No clubbing or cyanosis. NEUROLOGIC: She is awake, alert and oriented. Does have some short-term memory issues. Moves all extremities equally. Follows commands with ease. DIAGNOSTIC STUDIES LABORATORY: Hemoglobin 9.4, hematocrit 29.4, WBC 9.4, platelet count 203. Sodium 139, potassium 3.1, chloride 100, CO2 29, BUN 43, creatinine 1.1, glucose 265, magnesium 1.9. Initial bihdx-rg-jnci troponin was 0.05, repeat troponin is 0.67. BNP was 515. IMAGING: Chest x-ray shows cardiomegaly, decrease in pleural fluid, evidence of pulmonary vascular congestion and interstitial edema with left perihilar infiltrate. Most likely, construction representative of congestive heart failure. CARDIOVASCULAR: EKG shows normal sinus rhythm, rate of 102 beats per minute. Incomplete right bundle branch block. ST segment depression, approximately 0.5 mm, in the inferolateral leads. IMPRESSION 1. Acute on chronic systolic and diastolic congestive heart failure. Last known EF was 30% to 35%. 2. Acute hypoxic respiratory failure. 3. Non-ST elevation IL. Initial troponin was 0.05. Repeat troponin is 0.67. The patient recently underwent cardiac catheterization in August. See above for results. Could be related to supply-demand issue. 4. Hypokalemia. 5. History of paroxysmal atrial fibrillation, currently in normal sinus Unit #: [id number] #: [id number] Patient: CATHY MELLO rhythm with frequent PACs. 6. Hypertension. 7. Hyperlipidemia. 8. Diabetes mellitus. 9. Chronic kidney disease. 10. Breast cancer, stage IV, with iliac bone metastasis, on letrozole, followed by Dr. Andrade. 11. Accelerated hypertension. 12. COPD. PLAN 1. The patient was admitted for acute on chronic exacerbation of her congestive heart failure. Her initial cardiac enzymes were negative; however, repeat enzymes showed troponin of 0.67. This could be related to her acute hypoxic event; however, will follow and trend cardiac enzymes. 2. She will continue on diuresis with Lasix 60 mg IV b.i.d. Will also replace her potassium. Will add a magnesium level to blood in lab and also check a TSH. Will also draw a fasting lipid panel. She will get repeat EKG in the a.m. At present the patient is currently on a heparin drip. This will be discontinued, and she will be started on Lovenox 1 mg/kg subcu daily. 3. Will also put her on fluid restriction, low-sodium diet, daily weights and monitoring of accurate I's and O's. 4. The patient did recently undergo cardiac catheterization in August 2016, which showed left main normal, LAD with multiple overlapping stents, which were patent. The diagonal 2 and 3 had 50% stenosis. Left circumflex 50% to 60% and RCA stent that was patent. Posterior lateral branch of distal RCA has 80% stenosis. Vessel size is small, not suitable for PCI. At this point, would suggest continuing conservative medical management and monitoring the patient closely. She will be continued on aspirin, beta-delia, Plavix, diuretics, nitrates, high-dose statin therapy and JASPREET. Will also ask for cardiac rehab consult. Further recommendations pending Dr. Baker's assessment. Dictated by... Mora Garcia A.P.R.N. LMW/db TD: 10/14/2016 14:18 JOB #: [id number] CONSULTATION REPORT Page 1 of 1 X Mora Garcia APRN CONSULTATION REPORT
--- NOTE | ~2016-10-13 | DS ---
Unit #: [id number] #: [id number] Patient: CATHY MELLO [id number] [address] [place], [place] [address] [id number] I MR#: [id number] NAME: CATHY MELLO ROOM: 567 Age: 86 Sex: F Admission Date: 10/13/2016 : 1930 Discharge Date: 10/17/2016 Attending Physician: Nataly Contreras M.D. Primary Care Physician: Calderon Fernandez M.D. DISCHARGE SUMMARY DISCHARGE DIAGNOSES 1. Non-ST elevation myocardial infarction with highest troponin of 1.80 as well as evidence of ventricular tachycardia. Medical management per cardiology. 2. Acute on chronic diastolic and systolic heart failure. Patient was aggressively diuresed here. Patient diuresed about 3 liters during this hospitalization. 3. Acute on chronic respiratory failure secondary to the heart failure. 4. Chronic kidney disease with glomerular filtration rate around 50s-60s, stage 3. 5. Ischemic cardiomyopathy. Patient did have a heart catheterization last August,. She had patent stent in left anterior descending and right coronary artery; moderate stenosis in left circumflex, but not severe enough to warrant percutaneous coronary intervention; and posterolateral branch of distal right coronary artery has 80% stenosis, but vessel size is small and not suitable for percutaneous coronary intervention. 6. Patient has stage 4 breast cancer with metastases to the left iliac bone and right axillary lymph node. 7. Type 2 diabetes. 8. Restless leg syndrome. 9. Chronic pain syndrome. 10. Spinal stenosis. 11. Obstructive sleep apnea. 12. 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 [facility], Dr. Ronaldo Barnhart. PROCEDURES None. DIAGNOSTIC STUDIES IMAGING: Patient had a chest x-ray on October 13. Conclusions: Cardiomegaly with decrease in pleural fluid, evidence of pulmonary vascular congestion, and interstitial edema, left perihilar infiltrates, most likely representing congestive heart failure. LABORATORY: Patient's set of labs on the day of discharge with a BMP: Glucose of 162, BUN 39, creatinine 1, sodium 143, with a potassium of 4.4, chloride 101, CO2 37, calcium 8.6. CBC with WBC of 8, RBC 3.94, hemoglobin 8.3, hematocrit 26.3, MCV 89.4, MCH 28.2, MCHC 31.4, RDW 16.5, and platelets Unit #: [id number] #: [id number] Patient: CATHY MELLO, and MPV 7.4. HOSPITAL COURSE Patient is a pleasant, 86-year-old female with past medical history of ischemic cardiomyopathy, type 2 diabetes, essential hypertension, COPD, congestive heart failure, metastatic breast cancer, and chronic kidney disease who presented to the emergency department due to symptoms of shortness of breath. Patient stated that patient had developed sudden onset of shortness of breath and increasing pedal edema. She had denied chest pain, but the noted symptoms above. When EMS arrived, patient's oxygen saturation was 60%. She was given nebulizer and oxygen and her saturation increased to 69%. A BiPAP was placed onto the patient. She had blood pressure readings of 193/91. When she was assessed, she was still requiring the BiPAP for symptoms of shortness of breath. Again, patient denies symptoms of chest pain, but the symptoms stated above. She was admitted for acute on chronic hypoxic respiratory failure requiring BiPAP, elevated hypertension, and congestive heart failure. She was seen in consultation per cardiology and was diuresed with IV Lasix. With regards to her hypoxia, troponin was checked and initially was 0.67. We thought that may be due to her acute hypoxic respiratory failure, but this had continued to increase and topped the highest at 1.80. She was initially treated with nitro paste for elevated troponin and accelerated hypertension. She was also given heparin drip. She was medically managed for NSTEMI. She was noted to have V-tach on her telemetry. Under the guidance of cardiology, it was felt that patient's elevated troponin and her NSTEMI should be managed medically. She was eventually weaned down to a venturi mask and then back to her oxygen via nasal cannula and Lasix was eventually transitioned to orally. For her acute NSTEMI, cardiology has asked for cardiac rehab, but patient and her have declined this due to patient not being able to have transportation from [facility]. Patient was seen in consultation with physical and occupational therapy. We did offer patient subacute rehab, but she and her have both declined at this time. They think that they want her to go back to [facility] and continue the physical and occupational therapy there through [facility]. PROGNOSIS Patient's prognosis is guarded at this time. DISPOSITION She will be discharged home back to [facility] with her in stable condition. DISCHARGE INSTRUCTIONS 1. Please follow up with her primary care physician within 1-2 weeks. 2. Follow up with her primary air deodorizer servicer, Dr. Nayak in 3-4 weeks. 3. Activities: Patient is to resume her activities as prior to hospitalization, which patient minimally transfers with a lift. 4. Discharge diet: Resume heart healthy diet with consistent carb per [place] [employer] guidelines. Patient is to have 1800 mL fluid restriction and heart healthy with 2 g of sodium daily. DISCHARGE MEDICATIONS 1. ProAir 2 puffs inhaled every 4-6 hours as needed for shortness of breath and/or wheezing. 2. Symbicort 160 mcg 2 puffs inhaled twice daily. 3. Gabapentin 100 mg orally at bedtime. 4. Letrozole 2.5 mg orally daily. Unit #: [id number] #: [id number] Patient: CATHY MELLO 5. Mirapex 1 mg orally 3 times daily. 6. Coreg increased to 12.5 mg orally twice daily. 7. Lasix 80 mg orally twice daily. 8. Pravachol 80 mg orally daily. 9. Lisinopril 2.5 mg orally daily. 10. Levemir 25 units subcutaneously twice daily. 11. Humalog low-dose sliding scale prior to meals and at bedtime. 12. Multivitamin 1 tablet orally daily. 13. Aspirin 81 mg orally daily. 14. Plavix 75 mg orally daily. 15. Spironolactone 25 mg orally daily. 16. Calcium plus D 500 mg orally daily. 17. Patient can stop the potassium. 18. Amaryl 2 mg orally with breakfast. 19. Imdur 30 mg orally daily. 20. Nitro Sublingual 0.4 mg sublingually every 5 minutes for symptoms of chest pain. 21. Ascorbic acid 500 mg orally twice daily. Dictated by... Modesto Stroud PA-C for Enrique Bernal TD: 10/18/2016 08:39 JOB #: [id number] DISCHARGE SUMMARY Page 1 of 1 X X DISCHARGE SUMMARY
--- NOTE | ~2016-10-13 | EKG ---
PATIENT: CATHY MELLO UNIT #: [id number] Ventricular Rate: 68 BPM Atrial Rate: 70 BPM QRS Duration: 100 ms Q-T Interval: 400 ms QTC Calculation(Bezet): 425 ms Calculated R Mason: 10 degrees Calculated T Mason: 113 degrees Diagnosis Line: Sinus bradycardia Diagnosis Line: Nonspecific ST and T wave abnormality Diagnosis Line: Abnormal ECG Diagnosis Line: When compared with ECG of 15-OCT-2016 09:41, Diagnosis Line: Junctional rhythm has replaced Sinus rhythm Diagnosis Line: QT has lengthened Diagnosis Line: Confirmed by KATIUSKA GROVE MD ([id number]) on Diagnosis Line: 10/16/2016 3:57:08 PM INTERPRETING MD: DAVID
--- NOTE | ~2016-10-13 | CR126 ---
[facility] A Service of [facility] RADIOLOGY TEXT RESULTS PATIENT: CATHY MELLO LOCATION: [facility] 56-01 : 32 UNIT #: [id number] AGE: [address]: Nataly Contreras MD SEX: F ORDER DR: [id number] [id number] [facility]. [place], [place] [address] [id number] I MR#: [id number] Acc #: [id number] NAME: CATHY MELLO : 1930 SEX: F STUDY DATE/TIME: 10/17/2016 14:53 UNIT: [facility] ROOM: [facility] STUDY DESCRIPTION: CR Foot Complete Min 3 View Lt Attending Physician: Nataly Contreras M.D. Ordering Physician: Taran Mckeon Primary Care Physician: Calderon Fernandez M.D. MEDICAL IMAGING REPORT This report is preliminary unless electronic signature is present EXAM Left foot 10/17/2016 INDICATIONS 86-year-old female with pain in the left foot and heel for 3 days TECHNIQUE 3 views left foot COMPARISON No comparisons FINDINGS The bones are osteoporotic. There appear to be old healed fracture deformities of the junctions of the fourth and fifth metatarsals and metatarsal heads. There is atherosclerotic disease most characteristic of diabetes. Mild degenerative change of the first MTP joint. Enthesopathic change of the Achilles insertion. There is collapse of the talocalcaneal joint. Mild degenerative change in the midfoot. IMPRESSION 1. The bones are osteoporotic. There is collapse of the talocalcaneal joint likely chronic based on imaging features and probably related to diabetic neuropathy. Correlate with patient history. What appear to represent old healed fracture deformities of the junctions of the fourth and fifth metatarsal shaft and metatarsal heads. 2. Mild atherosclerotic disease and degenerative changes as otherwise described. No definite acute fracture/ Dictated by... Jose Lyon M.D. THIS IS AN ELECTRONICALLY VERIFIED REPORT [facility] A Service of [facility] RADIOLOGY TEXT RESULTS PATIENT: CATHY MELLO LOCATION: [facility] 567-01 : 32 UNIT #: [id number] AGE: [address]: Nataly Contreras MD SEX: F ORDER DR: Jose Lyon M.D. at 10/17/2016 10:46 PM MINNIE/lynn TD: 10/17/2016 16:56 JOB #: [id number] MEDICAL IMAGING REPORT Page 1 of 1 COPY
--- NOTE | ~2016-10-13 | CR55 ---
[facility] A Service of [facility] RADIOLOGY TEXT RESULTS PATIENT: CATHY MELLO LOCATION: [facility] 567 : 32 UNIT #: [id number] AGE: [address]: Nataly Contreras MD SEX: F ORDER DR: [id number] [address] [id number] [facility]. [place], [place] [address] [id number] I MR#: [id number] #: [id number] NAME: CATHY MELLO : 1930 SEX: F STUDY DATE/TIME: 10/17/2016 14:54 UNIT: [facility] ROOM: [facility] STUDY DESCRIPTION: CR Calcaneus Min 2 Views Lt Attending Physician: Nataly Contreras M.D. Ordering Physician: Nataly Contreras M.D. Primary Care Physician: Calderon Fernandez M.D. MEDICAL IMAGING REPORT This report is preliminary unless electronic signature is present EXAM Left calcaneus 10/17/2016 INDICATIONS Pain for 3 days. TECHNIQUE 2 views left calcaneus. COMPARISON No comparisons FINDINGS There is collapse of the talocalcaneal joint, likely chronic in nature and likely related to underlying diabetic neuropathy, given the presence of atherosclerotic calcifications and overall osteoporosis. There is enthesopathic change of the Achilles insertion. No definite acute fracture. Mild degenerative change in the midfoot. IMPRESSION The bones are osteoporotic and there appears to be collapse of the talocalcaneal joint likely chronic in nature and probably related to diabetic neuropathy. This is actually better demonstrated on the dedicated foot series. No definite acute fracture. Dictated by... Jose Lyon M.D. THIS IS AN ELECTRONICALLY VERIFIED REPORT Jose Lyon M.D. at 10/17/2016 10:46 PM MINNIE/rehana [facility] A Service of [facility] RADIOLOGY TEXT RESULTS PATIENT: CATHY MELLO LOCATION: [facility] 567 : 32 UNIT #: [id number] AGE: [address]: Nataly Contreras MD SEX: F ORDER DR: TD: 10/17/2016 17:01 JOB #: [id number] MEDICAL IMAGING REPORT Page 1 of 1 COPY
--- NOTE | ~2016-10-13 | EKG ---
PATIENT: CATHY MELLO UNIT #: [id number] Ventricular Rate: 102 BPM Atrial Rate: 208 BPM QRS Duration: 104 ms Q-T Interval: 350 ms QTC Calculation(Bezet): 456 ms Calculated R [place]ford: -6 degrees Calculated T [place]: 126 degrees Diagnosis Line: Sinus rhythm Diagnosis Line: Poor R wave progression questionable lead position Diagnosis Line: or body habitus Diagnosis Line: Nonspecific ST and T wave abnormality Diagnosis Line: Abnormal ECG Diagnosis Line: When compared with ECG of 08-SEP-2016 05:50, Diagnosis Line: No significant change was found Diagnosis Line: Confirmed by AGATA ROJO MD ([id number]) on Diagnosis Line: 10/19/2016 5:37:45 AM INTERPRETING SATINDER ZAPATA
--- NOTE | ~2016-10-13 | CR71 ---
[facility] A Service of [facility] RADIOLOGY TEXT RESULTS PATIENT: CATHY MELLO LOCATION: [facility] 567-01 : 32 UNIT #: [id number] AGE: [address]: Nataly Contreras MD SEX: F ORDER DR: [id number] [facility] [address] [place], [place] [address] [id number] I MR#: [id number] Acc #: [id number] NAME: CATHY MELLO : 1930 SEX: F STUDY DATE/TIME: 10/13/2016 21:50 UNIT: [facility] ROOM: [facility] STUDY DESCRIPTION: CR Chest Single View Attending Physician: Maureen Mcgee M.D. Ordering Physician: Dion Mcgee M.D. Primary Care Physician: Calderon Fernandez M.D. MEDICAL IMAGING REPORT This report is preliminary unless electronic signature is present EXAM Portable chest HISTORY SUPPLIED Short of breath, weakness beginning today. FINDINGS An AP view is obtained. There is cardiac enlargement. Lungs show evidence of chronic pulmonary vascular congestion and edema. The pleural effusions have resolved since the study of September 08; however, there continues to be atelectasis in the bases. There are perihilar infiltrates, which are more prominent on the left. CONCLUSION Cardiomegaly, decrease in pleural fluid, evidence of pulmonary vascular congestion and interstitial edema with left perihilar infiltrate. Most likely, this represents congestive heart failure. Dictated by... Aldo Mora M.D. THIS IS AN ELECTRONICALLY VERIFIED REPORT Aldo Mora M.D. at 10/17/2016 7:21 AM AMELIA/kylah TD: 10/14/2016 02:18 JOB #: [id number] MEDICAL IMAGING REPORT Page 1 of 1 COPY
--- NOTE | ~2016-10-13 | EKG ---
PATIENT: CATHY MELLO UNIT #: [id number] Ventricular Rate: 67 BPM Atrial Rate: 67 BPM P-R Interval: 180 ms QRS Duration: 96 ms Q-T Interval: 356 ms QTC Calculation(Bezet): 376 ms P Fosters: 34 degrees Calculated R Fosters: 75 degrees Calculated T Fosters: 142 degrees Diagnosis Line: Normal sinus rhythm with sinus arrhythmia Diagnosis Line: Nonspecific ST and T wave abnormality Diagnosis Line: Abnormal ECG Diagnosis Line: When compared with ECG of 13-OCT-2016 21:23, Diagnosis Line: (unconfirmed) Diagnosis Line: Vent. rate has decreased BY 35 BPM Diagnosis Line: Nonspecific T wave abnormality now evident in Diagnosis Line: Anterior leads Diagnosis Line: QT has shortened Diagnosis Line: Confirmed by SAMMY TORRES MD ([id number]) on 10/16/2016 Diagnosis Line: 7:15:05 AM INTERPRETING MD: MELISSA SHARIF
[2016-10-13 21:40] LABS: BASOPHIL% 0.4 % (0-2.5); EOSINOPHIL# 0.2 X10e3 (0-0.7); EOSINOPHIL% 1.2 % (0.0-7.0); HEMATOCRIT 32.4 % (35.0-45.0); HEMOGLOBIN 10.2 gm/dL (12.0-16.0); LYMPHOCYTE# 0.7 X10e3 (1.0-3.5); LYMPHOCYTE% 5.4 % (17.0-45.0); MEAN CELL VOLUME 89.1 FL (83-96); MEAN CORPUSCULAR HEMOGLOBIN 27.9 PG (28-34); MEAN CORPUSCULAR HGB CONC 31.3 g/dL (30-36); MEAN PLATELET VOLUME 7.5 FL (6.5-11.5); MONOCYTE# 0.4 X10e3 (0-1.0); MONOCYTE% 3.4 % (3.0-12.0); NEUTROPHIL# 11.5 X10e3 (1.5-7.1); NEUTROPHIL% 89.6 % (40-75); PLATELET COUNT 271 X10e3 (140-420); RED BLOOD COUNT 3.64 X10e (3.90-5.30); RED CELL DISTRIBUTION WIDTH 16.5 % (11.0-15.5); WHITE BLOOD COUNT 12.8 X10e3 (4.0-10.5)
[2016-10-13 21:41] LABS: DIFF IND NO
[2016-10-13 21:44] LABS: ARTERIAL BLOOD GAS CARBOXY HB 1.5 %sat (0.0-9.0); ARTERIAL BLOOD GAS HCO3 30.9 mmol/L; ARTERIAL BLOOD GAS MET HB 0.5 %sat (0.0-2.0); ARTERIAL BLOOD GAS PO2 93.5 mmHg (80.0-100); ARTERIAL BLOOD GAS pH 7.353 (7.350-7.450)
[2016-10-13 21:46] LABS: ARTERIAL BLOOD GAS ART SITE RIGHT BRACHIAL; ARTERIAL BLOOD GAS PCO2 55.6 mmHg (35.0-45.0); ARTERIAL DRAW? YES
[2016-10-13 22:02] LABS: BILIRUBIN,TOTAL 0.6 mg/dL (0.2-2.0); BUN/CREATININE RATIO 36.15; CALCIUM SERUM 8.7 mg/dL (8.4-10.2); CREATININE SERUM 1.3 mg/dL (0.6-1.4); GLOM FILT RATE Estimated 37.6 mL/min (>60); MAGNESIUM 1.9 mg/dL (1.6-3.0); POTASSIUM 3.6 mmol/L (3.5-5.1); PROTEIN TOTAL SERUM 7.7 g/dL (6.0-8.3)
[2016-10-13 22:07] LABS: POC - CKMB 3.2 ng/mL (0.0-7.9); POC - TROPONIN <0.05 ng/mL (<=0.05)
[2016-10-13 22:22] LABS: PARTIAL THROMBOPLASTIN TIME 27.1 SECONDS (23.5-31.3); PROTHROMBIN TIME (PATIENT) 10.7 SECONDS (9.6-11.5)
[2016-10-13 22:28] LABS: INFLUENZA A NEG (NEG); INFLUENZA B NEG (NEG)
[~2016-10-13 22:29] MED LIST changes: +AMARYL2 MG PO; +CALCIUM 500 +1 EAC5 PO; +CARVEDILOL6.25 MG PO; +COREG3.125 MG PO; +FUROSEMIDE40 MG PO; +HUMALOG100 UNIT/2; +K-TAB ER20 MEQ PO; +KLOR-CON PO; +LEVEMIR100 UNITS/ SUBQ; +MAGIC BARRIER CREAM TOP; +MINERALS PO; +NEURONTIN PO; +NOVOLOG100 UNIT/1 SUBQ; +OS-CAL 500500 MG PO; +PROAIR HFA8.5 GM; +SYMBICORT 16010.2 GM INH; +TOUJEO SOL300 UNIT/1 SUBQ; +VITAMIN C PO; +VITAMIN PO
[2016-10-14 00:37] LABS: URINE SOURCE CATH
[2016-10-14 00:41] LABS: URINE APPEARANCE CLOUDY; URINE BILIRUBIN NEG (NEG); URINE BLOOD TRACE (NEG); URINE COLOR YELLOW; URINE GLUCOSE NEG (NEG); URINE KETONE NEG (NEG); URINE LEUKOCYTE ESTERASE NEG (NEG); URINE NITRATE NEG (NEG); URINE PROTEIN NEG (NEG); URINE SPECIFIC GRAVITY 1.006 (1.003-1.035); URINE UROBILINOGEN 0.2 MG/DL (NEG)
[2016-10-14 00:43] LABS: CULTURE INDICATED? NO; U HYALINE CASTS AUWI 0-2 /[LPF]; URBCS1 AUWI 0-2 /[HPF] (0-2); URINE BACTERIA AUWI NEG (NEGATIVE); URINE SQUAMOUS EPITHELIAL CELL NONE SEEN /[HPF]; UWBCS1 AUWI 0-2 (0-5)
[2016-10-14 03:33] LABS: BASOPHIL% 0.1 % (0-2.5); EOSINOPHIL% 0.1 % (0.0-7.0); HEMATOCRIT 29.4 % (35.0-45.0); HEMOGLOBIN 9.4 gm/dL (12.0-16.0); LYMPHOCYTE# 0.2 X10e3 (1.0-3.5); LYMPHOCYTE% 1.9 % (17.0-45.0); MEAN CELL VOLUME 88.4 FL (83-96); MEAN CORPUSCULAR HEMOGLOBIN 28.2 PG (28-34); MEAN CORPUSCULAR HGB CONC 31.9 g/dL (30-36); MEAN PLATELET VOLUME 7.4 FL (6.5-11.5); MONOCYTE# 0.1 X10e3 (0-1.0); MONOCYTE% 0.7 % (3.0-12.0); NEUTROPHIL# 9.1 X10e3 (1.5-7.1); NEUTROPHIL% 97.2 % (40-75); PLATELET COUNT 203 X10e3 (140-420); RED BLOOD COUNT 3.33 X10e (3.90-5.30); RED CELL DISTRIBUTION WIDTH 16.4 % (11.0-15.5); WHITE BLOOD COUNT 9.4 X10e3 (4.0-10.5)
[2016-10-14 03:34] LABS: DIFF IND NO
[2016-10-14 04:16] LABS: BUN/CREATININE RATIO 39.09; CALCIUM SERUM 8.7 mg/dL (8.4-10.2); CREATININE SERUM 1.1 mg/dL (0.6-1.4); GLOM FILT RATE Estimated 46.1 mL/min (>60); POTASSIUM 3.1 mmol/L (3.5-5.1)
[2016-10-14 04:34] LABS: %MB 9.9 % (0.0-4.0); MB 10.9 ng/ml
[2016-10-14 07:34] LABS: INR 1.1; PARTIAL THROMBOPLASTIN TIME 27.4 SECONDS (23.5-31.3); PROTHROMBIN TIME (PATIENT) 11.4 SECONDS (9.6-11.5)
[2016-10-14 12:09] LABS: %MB 10.6 % (0.0-4.0); MB 9.9 ng/ml
[2016-10-14 17:12] LABS: %MB 9.8 % (0.0-4.0); MB 7.8 ng/ml
[2016-10-15 00:11] LABS: %MB 5.7 % (0.0-4.0)
[2016-10-15 05:38] LABS: HEMATOCRIT 25.4 % (35.0-45.0); MEAN CELL VOLUME 88.7 FL (83-96); MEAN CORPUSCULAR HEMOGLOBIN 28.1 PG (28-34); MEAN CORPUSCULAR HGB CONC 31.7 g/dL (30-36); MEAN PLATELET VOLUME 7.7 FL (6.5-11.5); RED BLOOD COUNT 2.86 X10e (3.90-5.30); RED CELL DISTRIBUTION WIDTH 16.2 % (11.0-15.5); WHITE BLOOD COUNT 9.3 X10e3 (4.0-10.5)
[2016-10-15 07:17] LABS: CALCIUM SERUM 8.5 mg/dL (8.4-10.2); CREATININE SERUM 1.2 mg/dL (0.6-1.4); GLOM FILT RATE Estimated 41.5 mL/min (>60)
[2016-10-15 12:46] LABS: HEMATOCRIT 28.4 % (35.0-45.0); HEMOGLOBIN 8.8 gm/dL (12.0-16.0); MEAN CELL VOLUME 89.5 FL (83-96); MEAN CORPUSCULAR HEMOGLOBIN 27.9 PG (28-34); MEAN CORPUSCULAR HGB CONC 31.2 g/dL (30-36); MEAN PLATELET VOLUME 7.5 FL (6.5-11.5); RED BLOOD COUNT 3.17 X10e (3.90-5.30); RED CELL DISTRIBUTION WIDTH 16.6 % (11.0-15.5); WHITE BLOOD COUNT 9.1 X10e3 (4.0-10.5)
[2016-10-16 10:29] LABS: HEMATOCRIT 25.9 % (35.0-45.0); HEMOGLOBIN 8.2 gm/dL (12.0-16.0); MEAN CELL VOLUME 88.8 FL (83-96); MEAN CORPUSCULAR HEMOGLOBIN 28.1 PG (28-34); MEAN CORPUSCULAR HGB CONC 31.7 g/dL (30-36); MEAN PLATELET VOLUME 7.5 FL (6.5-11.5); RED BLOOD COUNT 2.92 X10e (3.90-5.30); RED CELL DISTRIBUTION WIDTH 16.3 % (11.0-15.5)
[2016-10-16 11:02] LABS: BUN/CREATININE RATIO 36.36; CALCIUM SERUM 8.6 mg/dL (8.4-10.2); CREATININE SERUM 1.1 mg/dL (0.6-1.4); GLOM FILT RATE Estimated 46.1 mL/min (>60); POTASSIUM 4.4 mmol/L (3.5-5.1)
[2016-10-17 06:14] LABS: HEMATOCRIT 26.3 % (35.0-45.0); HEMOGLOBIN 8.3 gm/dL (12.0-16.0); MEAN CELL VOLUME 89.4 FL (83-96); MEAN CORPUSCULAR HEMOGLOBIN 28.1 PG (28-34); MEAN CORPUSCULAR HGB CONC 31.4 g/dL (30-36); MEAN PLATELET VOLUME 7.4 FL (6.5-11.5); RED BLOOD COUNT 2.94 X10e (3.90-5.30); RED CELL DISTRIBUTION WIDTH 16.5 % (11.0-15.5)
[2016-10-17 06:44] LABS: CALCIUM SERUM 8.6 mg/dL (8.4-10.2); GLOM FILT RATE Estimated 51.7 mL/min (>60); POTASSIUM 4.4 mmol/L (3.5-5.1)
[2016-10-17] MEDS ORDERED: NOVOLOG100 UNITS/ SUBQ (15:13)
[2016-10-17] MEDS ORDERED: VITAMIN B122500 MCG PO (15:14)
[2016-10-17] MEDS ORDERED: HUMALOG100 UNIT/1 SUBQ (15:56)
[2016-10-17] MEDS ORDERED: LEVEMIR100 UNITS/ SUBQ (15:57)
== END 2016-10-17 17:07 | disposition home health service (06) | DRG 280 ==
LOC: CED 22:29 → CEDOF 23:00 → C5C 10-14 01:56
PROVIDERS: Emergency Medicine; Family Medicine; Internal Medicine; Internal Medicine Cardiovascular Disease
DX: I21.4 Non-ST elevation (NSTEMI) myocardial infarction (principal); I50.23 Acute on chronic systolic (congestive) heart failure; J96.21 Acute and chronic respiratory failure with hypoxia; I47.2 Ventricular tachycardia; C77.9 Secondary and unspecified malignant neoplasm of lymph node, unspecified; C79.51 Secondary malignant neoplasm of bone; N18.3 Chronic kidney disease, stage 3 (moderate); C50.919 Malignant neoplasm of unspecified site of unspecified female breast; D64.9 Anemia, unspecified; I13.0 Hypertensive heart and chronic kidney disease with heart failure and stage 1 through stage 4 chronic kidney disease, or unspecified chronic kidney disease; E11.22 Type 2 diabetes mellitus with diabetic chronic kidney disease; E11.65 Type 2 diabetes mellitus with hyperglycemia; Z79.4 Long term (current) use of insulin; I25.5 Ischemic cardiomyopathy; G25.81 Restless legs syndrome; G89.4 Chronic pain syndrome; M48.00 Spinal stenosis, site unspecified; G47.33 Obstructive sleep apnea (adult) (pediatric); J44.9 Chronic obstructive pulmonary disease, unspecified; I25.10 Atherosclerotic heart disease of native coronary artery without angina pectoris; Z95.5 Presence of coronary angioplasty implant and graft; I73.9 Peripheral vascular disease, unspecified; E78.5 Hyperlipidemia, unspecified; Z89.431 Acquired absence of right foot; Z96.641 Presence of right artificial hip joint; Z90.710 Acquired absence of both cervix and uterus; Z90.49 Acquired absence of other specified parts of digestive tract; Z98.49 Cataract extraction status, unspecified eye; Z79.82 Long term (current) use of aspirin; Z88.0 Allergy status to penicillin; Z88.2 Allergy status to sulfonamides; Z88.8 Allergy status to other drugs, medicaments and biological substances; Z82.49 Family history of ischemic heart disease and other diseases of the circulatory system
CPT/HCPCS: 36600; 71010; 73630; 73650; 80048; 80053; 80061; 81003; 82550; 82553; 82803; 82947; 83605; 83735; 83880; 84443; 84484; 85025; 85027; 85610; 85730; 87040; 87086; 87804; 93005; 94640; 94660; 94664; 94760; 97110; 97163; 97167; 97530; 97535; 99291; G8978-GP; G8979-GP; G8987-GO; G8988-GO; J1644; J1650; J1815; J1940

== ENCOUNTER 2016-10-31 12:30 | Inpatient (IN) | payer MEDICARE, BC ==
--- NOTE | ~2016-10-31 | CO ---
Unit #: [id number] #: [id number] Patient: CATHY MELLO [id number] [address] [place], [place] [address] [id number] I MR#: [id number] NAME: CATHY MELLO ROOM: 576 Age: 86 Sex: F Admission Date: 10/31/2016 : 1930 Attending Physician: Nataly Contreras M.D. Primary Care Physician: Calderon Fernandez M.D. Consultation Date: 11/03/2016 CONSULTATION REPORT REASON FOR EVALUATION Breast cancer, please evaluate. 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 She was brought to our office. A PET scan was done and it was minimal disease in the axilla and possible a bone metastasis in the iliac bone. She remained on letrozole for about a year and a few months. Then, there was evidence of progression with the lymph nodes slightly bigger so she was changed to anastrazole and that is currently working as the patient and myself feel that the lymph nodes are smaller. Currently, she presents with congestive heart failure, possible pneumonia and has multisystem other problems including gjb-KB-yffryvijs myocardial infarction. PAST MEDICAL HISTORY Remarkable for: 1. COPD. 2. Cardiomyopathy. 3. Diabetes. 4. Chronic kidney disease. 5. Restrictive leg syndrome. 6. Spinal stenosis. 7. Sleep apnea. PAST SURGICAL HISTORY 1. CHRONIC MEDICATIONS Include: 1. Nitroglycerin. 2. Pepcid. 3. Pravachol. 4. . 5. MiraLAX. 6. Albuterol. 7. Spironolactone. 8. Levemir. 9. Cyanocobalamin. 10. Anastrazole. ALLERGIES Unit #: [id number] #: [id number] Patient: CATHY MELLO 1. Penicillin. 2. Phenergan. 3. Dextromethorphan. 4. Sulfa. SOCIAL HISTORY She is , lives with . No alcohol usage. She is a nonsmoker. FAMILY HISTORY Negative for breast cancer. Positive for coronary artery disease. REVIEW OF SYSTEMS Tired, shortness of breath. Pain in the right leg upon ambulation because it has only a stump. Six or eight systems were within normal limits. PHYSICAL EXAMINATION GENERAL: She looks pale. LYMPH: No supraclavicular, left axillary or groin adenopathy. Right axilla with 2 palpable lymph nodes about 2 cm in size. LUNGS: Crackles. HEART: Distant S1, S2. ABDOMEN: No palpable liver or spleen. PELVIC: Not performed. LOWER EXTREMITIES: Right leg has a stump. Left leg has 1+ edema and poor circulation. IMPRESSION This 86-year-old lady with a biopsy-proven ER-positive, HER2/jeanine negative breast CA since December 2014, remains stable on letrozole, followed by currently anastrazole with excellent response with palpable lymph nodes which are definitely smaller. She has minimal bone disease in the iliac bone but has multiple other chronic cardiopulmonary and kidney related fluid overload, congestive failure, NH, etc. But the breast cancer, although considered stage IV is not involving any important organs so the prognosis is reasonably good. So, at this point, all this was discussed with patient, her and son. We highly recommend a DNR as she will have lots of problems with a code. She previously had multiple fractures from the code. They do not desire [facility] and they also decline aggressive cardiac or open surgery. They would accept rehab, conservative treatment for her cardiac and pulmonary disease, and continue anastrazole 1 mg p.o. daily. Dictated by... Enrique Donahue/dean TD: 11/03/2016 18:28 JOB #: [id number] Unit #: [id number] #: [id number] Patient: CATHY MELLO CONSULTATION REPORT Page 1 of 1 X Terrence Andrade MD CONSULTATION REPORT
--- NOTE | ~2016-10-31 | CR63 ---
[facility] A Service of [facility] RADIOLOGY TEXT RESULTS PATIENT: CATHY MELLO LOCATION: [facility] 576 : 32 UNIT #: [id number] AGE: [address]: Nataly Contreras MD SEX: F ORDER DR: [id number] [facility] [address]. [place], [place] [address] [id number] I MR#: [id number] Acc #: [id number] NAME: CATHY MELLO : 1930 SEX: F STUDY DATE/TIME: 11/02/2016 7:14 UNIT: [facility] ROOM: [facility] STUDY DESCRIPTION: CR Chest 2 View Attending Physician: Nataly Conrteras M.D. Ordering Physician: Marito Balderas M.D. Primary Care Physician: Calderon Fernandez M.D. MEDICAL IMAGING REPORT This report is preliminary unless electronic signature is present EXAM PA and lateral chest, 11/02 COMPARISON 10/31 HISTORY Follow-up pneumonia. Shortness of air for 2 weeks. FINDINGS There are low lung volumes with cardiomegaly. There is mild interstitial prominence but there are no focal infiltrates identified. On the prior study there seemed to be some right lower lobe infiltrate and that is difficult to visualize on today's study. IMPRESSION There are low inspiratory volumes. I believe there was some right lower lobe infiltrate 2 days ago that may have improved. The examination is certainly limited by the low lung volumes but I do not see any focal infiltrates. Dictated by... Daniel Varma M.D. THIS IS AN ELECTRONICALLY VERIFIED REPORT Daniel Varma M.D. at 11/02/2016 11:35 AM HUMZA/jean TD: 11/02/2016 10:24 JOB #: [id number] [facility] A Service of [facility] RADIOLOGY TEXT RESULTS PATIENT: CATHY MELLO LOCATION: [facility] 5712-01 : 32 UNIT #: [id number] AGE: [address]: Nataly Contreras MD SEX: F ORDER DR: MEDICAL IMAGING REPORT Page 1 of 1 COPY
--- NOTE | ~2016-10-31 | DS ---
Unit #: [id number] #: [id number] Patient: CATHY MELLO [id number] [address] [place], [place] [address] [id number] I MR#: [id number] NAME: CATHY MELLO ROOM: 576 Age: 86 Sex: F Admission Date: 10/31/2016 : 1930 Discharge Date: 11/04/2016 Attending Physician: Nataly Contreras M.D. Primary Care Physician: Calderon Fernandez M.D. DISCHARGE SUMMARY REASON FOR ADMISSION Dyspnea. HISTORY OF PRESENT ILLNESS/HOSPITAL COURSE The patient is an 86-year-old female with prior history of ischemic cardiomyopathy, diabetes, hypertension, COPD, NSTEMI, persistent dyspnea, metastatic stage IV breast carcinoma who presented secondary to dyspnea. Please see H and P for complete details. Initial chest x-ray raised the possibility of right lower lobe base pneumonia as well as she was noted to be hypoxic initially. She was placed on BiPAP support secondary to acute hypoxic respiratory failure. In regard to her pulmonary status, consultation was placed to Dr. Balderas and associates for further evaluation. Through her hospital course, she received IV Solu-Medrol, aerosols, as well as, IV antibiotics. She was gradually transitioned off these medications and will be placed on prednisone as well as p.o. antibiotics at time of discharge per pulmonary. In regard to the patient's prior history of diabetes, her hemoglobin A1c was noted to be 7.2% and she was appropriately treated with Accu-Cheks as well as low-dose sliding scale and transitioned to medium-dose sliding scale while she was here. Blood cultures from this patient's hospital admission were unremarkable. In regard to her cardiac status as well as fluid overload, consultation was placed to Dr. Barnhart in [facility]. While she was here, she was placed on IV Lasix. This was gradually transitioned to p.o. Lasix and at time of discharge, she will be transitioned to Entresto. Medications at time of discharge will be reviewed by both cardiology as well as pulmonary. At this point in time, the patient seems medically stable for discharge. The patient does have a prior history of metastatic stage IV breast carcinoma to which we did consult Dr. Andrade. He stated the patient is appropriate for DNR status but at this point in time since she has responded to some treatments and the majority of her metastatic lesions are present within bone. Hospice care at this point in time is not Unit #: [id number] #: [id number] Patient: CATHY MELLO appropriate. Patient is well aware of her overall long-term prognosis which is guarded at best. Her recurrent hospital admissions have led to an overall decline in her general health. FINAL DISCHARGE DIAGNOSES 1. Dyspnea, multifactorial in origin. 2. Acute hypoxic respiratory failure. 3. Community-acquired pneumonia seen on admission. 4. Ischemic cardiomyopathy with ejection fraction 35%. 5. Hypertension. 6. Chronic obstructive pulmonary disease. 7. Diabetes. 8. Chronic kidney disease. 9. Metastatic stage IV breast carcinoma. 10. Restless leg syndrome. 11. Chronic pain syndrome. 12. Spinal stenosis. 13. Obesity. DIAGNOSTIC STUDIES LABORATORY: Discharge laboratory studies include a creatinine of 1 with a GFR of 51. Hemoglobin A1c 7.2%. Hemoglobin 8.1, white count 8.4. BNP shows 334. FINAL DISCHARGE MEDICATIONS Will be dictated in a separate addendum as they are to be reviewed by cardiology and pulmonary services. Dictated by... Nataly Contreras M.D. LEONOR/angeles TD: 11/05/2016 11:58 JOB #: [id number] DISCHARGE SUMMARY Page 1 of 1 X Nataly Contreras MD X DISCHARGE SUMMARY
--- NOTE | ~2016-10-31 | HP ---
Unit #: [id number] #: [id number] Patient: CATHY MELLO [id number] [address] [place], [place] [address] [id number] MR#: [id number] NAME: CATHY MELLO ROOM: Age: 86 Sex: F Admission Date: 10/31/2016 : 1930 Attending Physician: Sangita Russell M.D. Primary Care Physician: Calderon Fernandez M.D. HISTORY AND PHYSICAL CHIEF COMPLAINT Shortness of breath. HISTORY OF PRESENT ILLNESS The patient is an 86-year-old female with a history of ischemic cardiomyopathy, diabetes mellitus, hypertension, chronic obstructive pulmonary disease and history of non-ST elevation myocardial infarction. The patient was recently discharged from the hospital on 10/17/2016 and brought to the emergency room with shortness of breath. The patient was calling EMS earlier this morning for low blood sugar. The patient did not come to the hospital. However, EMS was called again for shortness of breath and the patient was found to have hypoxia with saturation of 73% at normal 2 liters of oxygen. The patient had a chest x-ray that showed an increased dense airspace at the right lower base concerning for pneumonia. The patient has been admitted for the above reasons. The patient was started on BiPAP and her troponins are positive up to 0.1. The patient denies any chest pain. She complains of shortness of breath and nonproductive cough for the last few days. PAST MEDICAL HISTORY 1. History of ischemic cardiomyopathy with ejection fraction of 35%. 2. Hypertension. 3. Chronic obstructive pulmonary disease. 4. Diabetes. 5. Chronic kidney disease. 6. Stage 4 breast cancer. 7. Restless leg syndrome. 8. Chronic pain syndrome. 9. Spinal stenosis. 10. Obstructive sleep apnea. PAST SURGICAL HISTORY 1. TMA of the right foot secondary to right foot ulcer. 2. Cholecystectomy. 3. Hysterectomy. 4. Right ET tube placement. 5. Cataract extraction. 6. Right arm surgery. SOCIAL HISTORY The patient lives with her at [facility]. She is a lifelong nonsmoker. She does not drink alcohol. FAMILY HISTORY Unit #: [id number] #: [id number] Patient: CATHY MELLO Positive for coronary artery disease. ALLERGIES Phenergan, penicillin, dextromethorphan, sulfa. HOME MEDICATIONS 1. Nitroglycerin p.r.n. 2. Albuterol. 3. Metrazol. 4. MiraLAX. 5. Pravachol. 6. Pepcid. 7. Spironolactone. 8. Cyanocobalamin. 9. Levemir. REVIEW OF SYSTEMS Fourteen point review of systems was performed and only pertinent positive findings are described above. The remaining are negative. PHYSICAL EXAMINATION GENERAL: The patient is lying on a bed, not in acute distress. VITALS: Temperature 96, pulse 106, respiratory rate 13, blood pressure 146/111, saturating 95%. HEENT: Head atraumatic, normocephalic. Pupils equal, round and reactive to light and accommodation. Extraocular movements are intact. Dry mucous membranes. NECK: Supple. LUNGS: Decreased air entry at the bases. Positive for rhonchi. HEART: Regular rate and rhythm. Positive for murmur. ABDOMEN: Soft. Positive bowel sounds. EXTREMITIES: Status post TMA of the right foot. Minimal pedal edema. NEUROLOGIC: Alert, awake and oriented. No gross focal motor deficits. DIAGNOSTIC STUDIES IMAGING: Chest x-ray shows there is a persistent enlargement of the cardiac silhouette with mild perihilar interstitial change, similar to 10/13/2016. There are, however, dense airspace changes in the right lung base with air bronchograms, increased from 10/13/2016, concerning for pneumonia. There is a patchy left retrocardiac density, felt likely stable. LABORATORY: pH 7.36, pCO2 60, pO2 196, bicarb 34, saturations 94.7. Glucose 158, BUN 39, creatinine 1.1, sodium 142, potassium 5.1, chloride 97, bicarb 33, calcium 9.5, total protein 7.7, AST 30, ALT 29, alkaline phosphatase 134, BNP 40, troponin 0.14. Lactic acid pending. INR 1.1. White blood cell count 29.4, hemoglobin 11.6, hematocrit 37.6, platelets 391, neutrophils 96.2. CARDIOVASCULAR: EKG shows sinus rhythm with effusion complexes, nonspecific ST-T changes. ASSESSMENT 1. Acute respiratory failure. 2. Pneumonia in the right lower base. 3. Sepsis, even though the lactic acid is pending. The hospitalist had been called for lactic acid came back and initiated the sepsis protocol. Unit #: [id number] #: [id number] Patient: CATHY MELLO 4. Non-ST elevation myocardial infarction. PLAN Admit the patient to the ICU with BiPAP. The patient will have pulmonary critical care consult with Dr. Balderas and cardiology consult for the BiPAP management. The patient will be seen by cardiology for the non-ST elevation myocardial infarction, status post cardiac catheterization back in August 2016 and (1) management and continue with IV antibiotics with Maxipime and Zithromax and check sputum cultures. Follow sepsis protocol. Further recommendations will follow as more labs are available. Dictated by Enrique Mcneil TD: 10/31/2016 14:42 JOB #: [id number] HISTORY AND PHYSICAL Page 1 of 1 X X HISTORY AND PHYSICAL
--- NOTE | ~2016-10-31 | CO ---
Unit #: [id number] #: [id number] Patient: CATHY MELLO [id number] [address] [place], [place] [address] [id number] I MR#: [id number] NAME: CATHY MELLO ROOM: 576 Age: 86 Sex: F Admission Date: 10/31/2016 : 1930 Attending Physician: Nataly Contreras M.D. Primary Care Physician: Calderon Fernandez M.D. Consultation Date: 11/01/2016 CONSULTATION REPORT REASON FOR CONSULTATION Possible pneumonia. HISTORY OF PRESENT ILLNESS Ms. Mello is an 86-year-old female with a very poor history. When I asked her why she came to the hospital she said "too much water." When I tried to pin her down if that meant shortness of breath, she said she has had shortness of breath for many months and that she has been in the hospital multiple times. Very difficult to ascertain what exact acute symptoms occurred for her to come to the hospital. She denied fever, chest pain, wheezing, sputum production or hemoptysis. Apparently she was found to have elevated troponin, diagnosed with a non-ST elevation myocardial infarction. Chest x-ray showed bilateral infiltrates, worse on there right, felt to be consistent with pneumonia. She has been placed on antibiotics and we were asked to evaluate. PAST MEDICAL HISTORY 1. Ischemic cardiomyopathy with an ejection fraction of 35%. She carries the diagnosis of chronic obstructive pulmonary disease, but is a nonsmoker. 2. Hypertension. 3. Diabetes. 4. Chronic kidney disease. 5. Stage 4 breast cancer, followed by Dr. Andrade. 6. Chronic pain. 7. Obstructive sleep apnea. Apparently from her story, trying to get CPAP currently. SOCIAL HISTORY Never smoker. FAMILY HISTORY No familial lung disease. ALLERGIES Penicillin, sulfa, dextromethorphan, promethazine. She states morphine does not help pain. HOME MEDICATIONS According to medication reconciliation sheet. 1. Novolog. 2. Levemir. 3. Symbicort. 4. Anastrazole. Unit #: [id number] #: [id number] Patient: CATHY MELLO 5. Zestril. 6. Plavix. 7. Aspirin. 8. Darvocet. 9. Aldactone. 10. Coreg. 11. Calcium. 12. Mirapex. 13. Imdur. REVIEW OF SYSTEMS Unreliable. Very limited. PHYSICAL EXAMINATION GENERAL: The patient is in no acute distress, on oxygen. VITALS: Afebrile, pulse 66, respiratory rate 16, blood pressure 129/50, 5'4", 180 pounds. HEENT: Pupils equal, round and reactive to light. Sclerae anicteric. Head atraumatic. NECK: Supple. No supraclavicular or cervical adenopathy appreciated. Mucous membranes moist. Mallampati class 3 or 4. Oropharynx, she has dentures. She does have some natural teeth and borderline dentition. CHEST: Equal breath sounds. Scattered rhonchi. Crackles at the bases. Somewhat more prominent right than left, but there are bilateral bases. HEART: Regular rate and rhythm. No pathologic murmur, rub or gallop. ABDOMEN: Soft, nontender. No hepatomegaly or rebound. EXTREMITIES: No clubbing, cyanosis or edema. No calf tenderness. SKIN: Warm and dry without rash or diaphoresis. NEUROLOGIC: Grossly intact. No focal muscle or sensory deficits. DIAGNOSTIC STUDIES IMAGING: Chest x-ray bilateral bibasilar infiltrate. She has a retrocardiac density. She has medial right lower lobe density, possible air bronchograms. CT scan in August showed evidence of congestive heart failure and very small pleural effusions. LABORATORY: She has had an arterial blood gas, pH 7.42, pCO2 55, pO2 138 on 60%. BUN 43, creatinine 1.3, BNP 420. No procalcitonin level. Troponin max 0.62. White blood cell count was 29 and now 16, hemoglobin 8.1, platelet count 212. Blood cultures performed and are pending. ASSESSMENT Very poor historian, but certainly sounds like she had shortness of breath which has improved. She does have pulmonary infiltrates and leukocytosis, so for now we will consider the diagnosis of pneumonia. It seems heart failure is certainly an issue as well as her acute myocardial infarction. PLAN Antibiotics for now. Diuresis. Review office notes. I will check a procalcitonin level and recheck a PA and lateral chest x-ray early in the morning. Further recommendations based on the above. Thank you very much for allowing ,me to participate in the care of Ms. Mello. Unit #: [id number] #: [id number] Patient: CATHY MELLO Dictated by... Marito Balderas M.D. WOL/gz TD: 11/01/2016 16:16 JOB #: [id number] CC: Enrique Aguirre M.D. [facility] CONSULTATION REPORT Page 1 of 1 X Marito Balderas MD X CONSULTATION REPORT
--- NOTE | ~2016-10-31 | EKG ---
PATIENT: CATHY MELLO UNIT #: [id number] Ventricular Rate: 97 BPM Atrial Rate: 97 BPM P-R Interval: 188 ms QRS Duration: 94 ms Q-T Interval: 330 ms QTC Calculation(Bezet): 419 ms P Bowden: 97 degrees Calculated R Bowden: 4 degrees Calculated T Bowden: 94 degrees Diagnosis Line: Sinus rhythm with Fusion complexes Diagnosis Line: Nonspecific ST and T wave abnormality Diagnosis Line: Abnormal ECG Diagnosis Line: When compared with ECG of 16-OCT-2016 07:34, Diagnosis Line: Fusion complexes are now Present Diagnosis Line: Nonspecific T wave abnormality, improved in Diagnosis Line: Anterolateral leads Diagnosis Line: Confirmed by JEREMY SAHA MD ([id number]) on Diagnosis Line: 11/01/2016 4:34:24 PM INTERPRETING MD: YIFAN SHARIF
--- NOTE | ~2016-10-31 | CO ---
Unit #: [id number] #: [id number] Patient: INESSA MELLO [id number] [facility] [address]. [place], [place] [address] [id number] MR#: [id number] NAME: INESSA MELLO ROOM: 576 Age: 86 Sex: F Admission Date: 10/31/2016 : 1930 Attending Physician: Nataly Contreras M.D. Primary Care Physician: Calderon Fernandez M.D. Consultation Date: 11/03/2016 CONSULTATION REPORT REASON FOR CONSULTATION Depression. HISTORY OF PRESENT ILLNESS Ms. Inessa Mello is an 86-year-old female, seen on 11/03/2016 in room 576, bed 1 at [facility]. The patient dressed casually in hospital attire, lying comfortably, seemed somewhat anxious as she reported that one of the doctor told her that she has a life expectancy of 6 to 8 months. The patient reports that she does not have the answer and the patient was reporting increased anxiety, and feeling sad about receiving different conflicting reports. The patient was admitted on 10/31/2016 with shortness of breath. The patient has a history of ischemic cardiomyopathy, diabetes, hypertension, COPD. The patient's was sitting at the bedside. The patient reported feeling sad, depressed, but denied any suicidal or homicidal ideation. Denied any psychotic symptom. The patient reports that she has a stage IV breast cancer, which was informed recently. The patient also has restless legs syndrome, trouble with sleep. Currently does not want to be on any medication. The patient denied any use of any drugs or alcohol. Reports that she has a good support from her . PAST PSYCHIATRIC HISTORY Unremarkable for any history of any previous treatment or any history of depression, anxiety. MEDICAL HISTORY History of ischemic cardiomyopathy with an ejection fraction of 35%, hypertension, COPD, diabetes, chronic kidney disease, stage IV breast cancer, restless legs syndrome, chronic pain syndrome, spinal stenosis, obstructive sleep apnea. ALLERGIES Phenergan, penicillin, dextromethorphan, and sulfa. MEDICATIONS The patient is on nitroglycerin, albuterol, MiraLax, Pravachol, Pepcid, spironolactone, cyanocobalamin, Levemir. Please refer to MAR for detail. FAMILY HISTORY AND SOCIAL HISTORY The patient has a good support from her . No history of abuse. No history of any substance abuse. REVIEW OF SYSTEMS Complete review of systems is remarkable for anxiety. Unit #: [id number] #: [id number] Patient: INESSA MELLO MENTAL STATUS EXAMINATION Vital signs; temperature 97.6, pulse 70, respiratory rate 16, blood pressure 154/91, oxygen saturation 97%. General appearance, the patient dressed casually in hospital attire, lying comfortably, seemed somewhat anxious and nervous. Attention span and concentration, fair. Speech, regular rate and coherent. Oriented in time, place, and person. Mood and affect were sad, dysphoric, anxious. Thought process, coherent and goal directed. Thought content, the patient denied any thoughts of harming self or others or any psychotic symptom. Recent and remote memory, fair. Language, intact. Fund of knowledge, fair. Insight and judgment, fair to slightly impaired. DIAGNOSES Psychiatric: Mood disorder, not otherwise specified, F32.9; rule out major depressive disorder, recurrent, F33.2. Secondary diagnosis: Deferred. Medical diagnosis: Please refer to H and P. Stressors: Psychosocial stressors. ASSESSMENT/PLAN 1. Supportive psychotherapy and psychoeducation provided to the patient. 2. Educated about benefits and side effects of medication and course and prognosis of illness. At this time, the patient does not want any medication. If needed, consider medication for the above-mentioned symptom. We will continue to follow. Please feel free to call if any questions, telephone #[phone]. Dictated by... Enrique Yoon/armando TD: 11/04/2016 01:23 JOB #: [id number] CONSULTATION REPORT Page 1 of 1 X Masoud Arteaga MD X CONSULTATION REPORT
--- NOTE | ~2016-10-31 | CR72 ---
[facility] A Service of [facility] & [facility] RADIOLOGY TEXT RESULTS PATIENT: CATHY MELLO LOCATION: [facility] : 32 UNIT #: [id number] AGE: [address]: Sangita Russell MD SEX: F ORDER DR: [id number] [facility] [address] [place], [place] [address] [id number] E MR#: [id number] Acc #: [id number] NAME: CATHY MELLO : 1930 SEX: F STUDY DATE/TIME: 10/31/2016 12:27 UNIT: [facility] ROOM: STUDY DESCRIPTION: CR Chest Single View Portable Attending Physician: Sangita Russell M.D. Ordering Physician: Sangita Russell M.D. Primary Care Physician: Calderon Fernandez M.D. MEDICAL IMAGING REPORT This report is preliminary unless electronic signature is present EXAM Chest portable 10/31/2016 1227 hours HISTORY 86-year-old woman with 2-week history of shortness of air, nausea, vomiting and weakness. Hypoglycemia. COMPARISON 10/13/2016. FINDINGS Portable upright chest demonstrates stable moderate enlargement of the cardiac silhouette. There is mild perihilar interstitial change similar to prior study. There is dense airspace change at the right lung base increased with air bronchograms present since 10/13/2016. Stable patchy left retrocardiac density. IMPRESSION There is persistent enlargement of the cardiac silhouette with mild perihilar interstitial change similar to 10/13/2016. There is however dense airspace change in the right lung base with air bronchograms increased from 10/13/2016 concerning for pneumonia. There is patchy left retrocardiac density felt likely stable. STAT * RESULT Dictated by... Steffi Silverman M.D. THIS IS AN ELECTRONICALLY VERIFIED REPORT Steffi Silverman M.D. at 10/31/2016 2:30 PM [facility] A Service of [facility] & [facility] RADIOLOGY TEXT RESULTS PATIENT: CATH[facility] MELLO [id number] 32 UNIT #: [id number] AGE: [address]: Sangita Russell MD SEX: F ORDER DR: JERRY/missy TD: 10/31/2016 12:51 JOB #: [id number] MEDICAL IMAGING REPORT Page 1 of 1 COPY
[~2016-10-31 12:30] MED LIST changes: +HUMALOG100 UNIT/1 SUBQ; +NOVOLOG100 UNITS/ SUBQ; +VITAMIN B122500 MCG PO
[2016-10-31 12:42] LABS: BASOPHIL# 0.1 X10e3 (0-0.3); BASOPHIL% 0.3 % (0-2.5); DIFF IND YES; EOSINOPHIL% 0.1 % (0.0-7.0); HEMATOCRIT 37.6 % (35.0-45.0); HEMOGLOBIN 11.6 gm/dL (12.0-16.0); LYMPHOCYTE# 0.7 X10e3 (1.0-3.5); LYMPHOCYTE% 2.5 % (17.0-45.0); MEAN CELL VOLUME 88.1 FL (83-96); MEAN CORPUSCULAR HEMOGLOBIN 27.1 PG (28-34); MEAN CORPUSCULAR HGB CONC 30.7 g/dL (30-36); MEAN PLATELET VOLUME 7.8 FL (6.5-11.5); MONOCYTE# 0.2 X10e3 (0-1.0); MONOCYTE% 0.9 % (3.0-12.0); NEUTROPHIL# 28.3 X10e3 (1.5-7.1); NEUTROPHIL% 96.2 % (40-75); PLATELET COUNT 391 X10e3 (140-420); RED BLOOD COUNT 4.27 X10e (3.90-5.30); RED CELL DISTRIBUTION WIDTH 16.1 % (11.0-15.5); WHITE BLOOD COUNT 29.4 X10e3 (4.0-10.5)
[2016-10-31 12:52] LABS: ARTERIAL BLD GAS O2 SATURATION 94.7 % (90.0-100.0); ARTERIAL BLOOD GAS HCO3 34.3 mmol/L; ARTERIAL BLOOD GAS MET HB 1.3 %sat (0.0-2.0); ARTERIAL BLOOD GAS pH 7.364 (7.350-7.450)
[2016-10-31 12:53] LABS: ARTERIAL BLOOD GAS ALLEN TEST NORMAL; ARTERIAL BLOOD GAS ART SITE RIGHT RADIAL; ARTERIAL BLOOD GAS PCO2 60.2 mmHg (35.0-45.0); ARTERIAL DRAW? YES
[2016-10-31 12:55] LABS: INR 1.1; PARTIAL THROMBOPLASTIN TIME 23.4 SECONDS (23.5-31.3); PROTHROMBIN TIME (PATIENT) 11.2 SECONDS (9.6-11.5)
[2016-10-31 13:04] LABS: ALBUMIN SERUM 3.8 g/dL (3.5-5.0); BILIRUBIN, DIRECT 0.1 mg/dL (0.0-0.2); BILIRUBIN,INDIRECT 0.7 mg/dL (0.0-0.9); BILIRUBIN,TOTAL 0.8 mg/dL (0.2-2.0); BUN/CREATININE RATIO 35.45; CALCIUM SERUM 9.5 mg/dL (8.4-10.2); CREATININE SERUM 1.1 mg/dL (0.6-1.4); GLOM FILT RATE Estimated 46.1 mL/min (>60); POTASSIUM 5.1 mmol/L (3.5-5.1); PROTEIN TOTAL SERUM 7.7 g/dL (6.0-8.3)
[2016-10-31 13:11] LABS: ANISOCYTOSIS SL; PLATELET ESTIMATE NORMAL (NORMAL)
[2016-10-31 13:12] LABS: POC - CKMB 7.8 ng/mL (0.0-7.9); POC - TROPONIN 0.1 ng/mL (<=0.05)
[2016-10-31 13:19] LABS: RBC NORMAL YES
[2016-10-31] MEDS ORDERED: NOVOLOG100 U/ML SUBQ (13:30)
[2016-10-31] MEDS ORDERED: SYMBICORT INH (13:31)
[2016-10-31] MEDS ORDERED: LEVEMIR100 UNITS/ SUBQ (13:31)
[2016-10-31] MEDS ORDERED: ANASTROZOLE1 MG PO (13:32)
[2016-10-31] MEDS ORDERED: LISINOPRIL PO (13:33)
[2016-10-31] MEDS ORDERED: PLAVIX PO (13:34)
[2016-10-31] MEDS ORDERED: ASPIRIN81 M2 PO (13:35)
[2016-10-31 13:58] LABS: %MB 7.9 % (0.0-4.0); MB 6.4 ng/ml
[2016-10-31 14:16] LABS: POC - CKMB 5.1 ng/mL (0.0-7.9); POC - TROPONIN 0.11 ng/mL (<=0.05)
[2016-10-31] MEDS ORDERED: DARVOCET PO (14:48)
[2016-10-31 14:49] LABS: ARTERIAL BLD GAS O2 SATURATION 98.3 % (90.0-100.0); ARTERIAL BLOOD GAS CARBOXY HB 1.1 %sat (0.0-9.0); ARTERIAL BLOOD GAS HCO3 35.6 mmol/L; ARTERIAL BLOOD GAS MET HB 0.3 %sat (0.0-2.0); ARTERIAL BLOOD GAS PCO2 54.9 mmHg (35.0-45.0)
[2016-10-31 14:50] LABS: ARTERIAL BLOOD GAS ALLEN TEST NORMAL; ARTERIAL BLOOD GAS ART SITE LEFT BRACHIAL; ARTERIAL DRAW? YES
[2016-10-31] MEDS ORDERED: ALDACTONE25 MG PO (15:17)
[2016-10-31] MEDS ORDERED: COREG12.5 MG PO (15:18)
[2016-10-31] MEDS ORDERED: CENTRUM SILVER1 EAC3 PO (15:29)
[2016-10-31] MEDS ORDERED: OS-CAL 500500 MG PO (15:29)
[2016-10-31] MEDS ORDERED: MIRAPEX PO (15:30)
[2016-10-31] MEDS ORDERED: IMDUR-ER30 M3 PO (15:32)
[2016-11-01 06:23] LABS: BASOPHIL% 0.2 % (0-2.5); DIFF IND NO; EOSINOPHIL% 0.3 % (0.0-7.0); HEMATOCRIT 26.3 % (35.0-45.0); HEMOGLOBIN 8.1 gm/dL (12.0-16.0); LYMPHOCYTE% 5.7 % (17.0-45.0); MEAN CELL VOLUME 87.5 FL (83-96); MEAN CORPUSCULAR HEMOGLOBIN 27.1 PG (28-34); MEAN CORPUSCULAR HGB CONC 30.9 g/dL (30-36); MEAN PLATELET VOLUME 7.6 FL (6.5-11.5); MONOCYTE# 0.4 X10e3 (0-1.0); MONOCYTE% 2.3 % (3.0-12.0); NEUTROPHIL# 15.4 X10e3 (1.5-7.1); NEUTROPHIL% 91.5 % (40-75); PLATELET COUNT 212 X10e3 (140-420); RED CELL DISTRIBUTION WIDTH 16.3 % (11.0-15.5); WHITE BLOOD COUNT 16.9 X10e3 (4.0-10.5)
[2016-11-01 07:02] LABS: BUN/CREATININE RATIO 33.07; CALCIUM SERUM 8.6 mg/dL (8.4-10.2); CREATININE SERUM 1.3 mg/dL (0.6-1.4); GLOM FILT RATE Estimated 37.6 mL/min (>60); POTASSIUM 4.7 mmol/L (3.5-5.1)
[2016-11-02 06:45] LABS: HEMOGLOBIN 8.3 gm/dL (12.0-16.0); MEAN CELL VOLUME 88.3 FL (83-96); MEAN CORPUSCULAR HEMOGLOBIN 27.2 PG (28-34); MEAN CORPUSCULAR HGB CONC 30.7 g/dL (30-36); MEAN PLATELET VOLUME 7.5 FL (6.5-11.5); RED BLOOD COUNT 3.05 X10e (3.90-5.30); WHITE BLOOD COUNT 9.6 X10e3 (4.0-10.5)
[2016-11-02 07:16] LABS: BUN/CREATININE RATIO 29.16; CALCIUM SERUM 8.7 mg/dL (8.4-10.2); CREATININE SERUM 1.2 mg/dL (0.6-1.4); GLOM FILT RATE Estimated 41.5 mL/min (>60); MAGNESIUM 2.4 mg/dL (1.6-3.0); POTASSIUM 4.3 mmol/L (3.5-5.1)
[2016-11-03 05:49] LABS: HEMOGLOBIN 8.1 gm/dL (12.0-16.0); MEAN CELL VOLUME 87.7 FL (83-96); MEAN CORPUSCULAR HEMOGLOBIN 27.4 PG (28-34); MEAN CORPUSCULAR HGB CONC 31.3 g/dL (30-36); MEAN PLATELET VOLUME 7.8 FL (6.5-11.5); RED BLOOD COUNT 2.97 X10e (3.90-5.30); RED CELL DISTRIBUTION WIDTH 16.2 % (11.0-15.5); WHITE BLOOD COUNT 8.4 X10e3 (4.0-10.5)
[2016-11-03 06:38] LABS: CALCIUM SERUM 8.7 mg/dL (8.4-10.2); GLOM FILT RATE Estimated 51.7 mL/min (>60); MAGNESIUM 2.4 mg/dL (1.6-3.0); POTASSIUM 4.5 mmol/L (3.5-5.1)
[2016-11-04 07:36] LABS: CALCIUM SERUM 8.8 mg/dL (8.4-10.2); GLOM FILT RATE Estimated 51.7 mL/min (>60); MAGNESIUM 2.3 mg/dL (1.6-3.0); POTASSIUM 4.4 mmol/L (3.5-5.1)
[2016-11-04] MEDS ORDERED: ACETAMINOPHEN325 MG PO (12:53)
[2016-11-04] MEDS ORDERED: FUROSEMIDE40 MG PO (12:55)
[2016-11-04] MEDS ORDERED: ENTRESTO 24 MG1 EACH PO (12:55)
[2016-11-04] MEDS ORDERED: LIPITOR20 MG PO (12:56)
[2016-11-04] MEDS ORDERED: CEFTIN PO (12:57)
[2016-11-04] MEDS ORDERED: AZITHROMYCIN250 MG PO (12:58)
== END 2016-11-04 13:41 | disposition home or self-care (01) | DRG 280 ==
LOC: CED 12:30 → CEDOF 14:25 → C5C 20:34
PROVIDERS: Emergency Medicine; Family Medicine; Nurse Practitioner Family; Physician Assistant Medical
DX: I21.4 Non-ST elevation (NSTEMI) myocardial infarction (principal); J18.9 Pneumonia, unspecified organism; J96.21 Acute and chronic respiratory failure with hypoxia; I50.43 Acute on chronic combined systolic (congestive) and diastolic (congestive) heart failure; C79.51 Secondary malignant neoplasm of bone; E11.22 Type 2 diabetes mellitus with diabetic chronic kidney disease; C50.919 Malignant neoplasm of unspecified site of unspecified female breast; I13.0 Hypertensive heart and chronic kidney disease with heart failure and stage 1 through stage 4 chronic kidney disease, or unspecified chronic kidney disease; D64.9 Anemia, unspecified; F33.9 Major depressive disorder, recurrent, unspecified; I25.5 Ischemic cardiomyopathy; J44.9 Chronic obstructive pulmonary disease, unspecified; G25.81 Restless legs syndrome; G89.4 Chronic pain syndrome; G47.33 Obstructive sleep apnea (adult) (pediatric); Z90.49 Acquired absence of other specified parts of digestive tract; Z90.710 Acquired absence of both cervix and uterus; Z98.49 Cataract extraction status, unspecified eye; Z88.0 Allergy status to penicillin; Z88.2 Allergy status to sulfonamides; Z79.4 Long term (current) use of insulin; F39 Unspecified mood [affective] disorder; N18.9 Chronic kidney disease, unspecified; I25.10 Atherosclerotic heart disease of native coronary artery without angina pectoris; J45.909 Unspecified asthma, uncomplicated; Z95.5 Presence of coronary angioplasty implant and graft; E66.9 Obesity, unspecified; M48.00 Spinal stenosis, site unspecified; Z68.31 Body mass index [BMI] 31.0-31.9, adult
CPT/HCPCS: 36600; 71010; 71020; 80048; 80061; 80076; 82308; 82550; 82553; 82803; 82947; 83036; 83605; 83735; 83880; 84484; 85025; 85027; 85610; 85730; 87040; 93005; 94660; 94760; 96365; 96366; 96368; 97163; 97167; 97530; 97535; 99291; G8978-GP; G8979-GP; G8980-GP; G8987-GO; G8988-GO; G8989-GO; J0456; J0692; J0696; J1815; J1940; J2920; J3260; J3370

== ENCOUNTER 2016-11-16 06:45 | Emergency (ER) | payer MEDICARE, BC ==
--- NOTE | ~2016-11-16 | CR72 ---
[facility] A Service of [facility] & [facility] RADIOLOGY TEXT RESULTS PATIENT: CATHY MELLO LOCATION: [facility] : 32 UNIT #: [id number] AGE: [address]: Jigar Toure MD SEX: F ORDER DR: [id number] [facility] [address] [place], [place] [address] [id number] E MR#: [id number] Acc #: [id number] NAME: CATHY MELLO : 1930 SEX: F STUDY DATE/TIME: 11/16/2016 7:09 UNIT: [facility] ROOM: STUDY DESCRIPTION: CR Chest Single View Portable Attending Physician: Jigar Toure M.D. Ordering Physician: Jigar Toure M.D. Primary Care Physician: Calderon Fernandez M.D. MEDICAL IMAGING REPORT This report is preliminary unless electronic signature is present EXAM Portable chest HISTORY Chest pain, shortness of breath today. History of heart failure FINDINGS AP portable view is obtained and compared directly to a study of 11/02. Cardiac size in the patient is enlarged. The lungs show a decrease in pulmonary edema. There are bilateral interstitial infiltrates which may be in large part chronic. CONCLUSION Cardiomegaly. Significant decrease in pulmonary edema. Bilateral interstitial infiltrates which may be largely chronic. Dictated by... Aldo Mora M.D. THIS IS AN ELECTRONICALLY VERIFIED REPORT Aldo Mora M.D. at 11/17/2016 7:25 AM AMELIA/shayna TD: 11/16/2016 07:55 JOB #: [id number] MEDICAL IMAGING REPORT Page 1 of 1 COPY
--- NOTE | ~2016-11-16 | EKG ---
PATIENT: CATHY MELLO UNIT #: [id number] Ventricular Rate: 59 BPM Atrial Rate: 59 BPM P-R Interval: 232 ms QRS Duration: 106 ms Q-T Interval: 426 ms QTC Calculation(Bezet): 421 ms P Austin: 55 degrees Calculated R Austin: -35 degrees Calculated T Austin: 84 degrees Diagnosis Line: Sinus bradycardia with marked sinus arrhythmia Diagnosis Line: with 1st degree A-V block Diagnosis Line: Left axis deviation Diagnosis Line: Cannot rule out Anterior infarct , age Diagnosis Line: undetermined Diagnosis Line: Abnormal ECG Diagnosis Line: No previous ECGs available Diagnosis Line: Confirmed by SAMMY TORRES MD ([id number]) on 11/16/2016 Diagnosis Line: 11:06:05 PM INTERPRETING MD: MELISSA SHARIF
--- NOTE | ~2016-11-16 | CO ---
Unit #: [id number] #: [id number] Patient: CATHY MELLO [id number] [facility] [address] [place], [place] [address] [id number] E MR#: [id number] NAME: CATHY MELLO ROOM: Age: 86 Sex: F Admission Date: 11/16/2016 : 1930 Attending Physician: Jigar Toure M.D. Primary Care Physician: Calderon Fernandez M.D. CONSULTATION REPORT CHIEF COMPLAINT Chest discomfort. Ms. Mello is an 86-year-old elderly white female who lives in assisted living with her . She has known metastatic breast cancer as well as arteriosclerotic heart disease. She presented this admission. Her biggest complaint to me really is generalized pain and pain in her hips. She states the pain is just so bad she is just in pain everywhere. She is in constant pain. She saw Dr. Andrade yesterday. She is scheduled to get a PET scan but she feels like someone has put glass in her hips and just is smashing the glass inside of her hip and they hurt and maybe that is what caused her to feel some discomfort in her chest. She keeps repeating to me that the discomfort in her chest is light, very, very light, she was just scared because she was told that if she had chest discomfort she was supposed to come to the hospital. She keeps repeating that the chest discomfort was really just light pain but that her pain is really in her hip. 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 Andrade. Coronary catheter August 12, 2016. Left main is normal. LAD with multiple overlapping stents which are patent. The diagonal two and three had a 50% stenosis. Left circ had a 50% to 60% stenosis and the RCA had a patent stent. Post lateral branch of the distal RCA had an 80% stenosis. The vessel size was small and not suitable for PCI. 2D echocardiogram August 11, 2016, showed EF 30% to 35%, impaired relaxation, mild to moderate mitral regurgitation, mild tricuspid regurgitation, right ventricular systolic pressure 41, history of heart failure, chronic pain syndrome, obstructive sleep apnea and diabetes mellitus. PAST SURGICAL HISTORY 1. Cardiac catheterization. 2. 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 3. Shabana. 4. Hysterectomy. 5. Right hip replacement. 6. Cataract surgery. 7. Right arm surgery. HOME MEDICATIONS 1. NovoLog 25 units subcu twice daily. 2. Levemir 40 mg subcu at bedtime. Unit #: [id number] #: [id number] Patient: CATHY MELLO 3. Symbicort 160/4.5, two puffs daily. 4. Anastrazole 1 mg daily. 5. Plavix 75 mg daily. 6. Aspirin 81 mg daily. 7. Darvocet 7.5 mg three times daily p.r.n. 8. Aldactone 25 mg daily. 9. Coreg 6.25 mg twice daily. 10. Os-Angus 500 daily. 11. Centrum daily. 12. Mirapex 1 mg twice daily. 13. Imdur 30 mg daily. 14. Tylenol 650 mg every six hours as needed. 15. Entresto 24/ twice daily. 16. Lasix 40 daily. 17. Lipitor 20 daily. 18. Ceftin 500 mg twice daily for four days. This may be completed at this point. 19. Azithromycin 250 mg daily. This also may be completed at this time. ALLERGIES Phenergan, penicillin, dextromethorphan and sulfa. FAMILY HISTORY Denies arteriosclerotic heart disease in the family. Mother had diabetes. SOCIAL HISTORY She [facility] with [facility] at [facility]. Lifelong nonsmoker. No illicit drugs or alcohol. REVIEW OF SYSTEMS Negative except for generalized pain. PHYSICAL EXAMINATION GENERAL: Well developed, well nourished, elderly white female in no acute distress. VITAL SIGNS: Temp 97.6, pulse 59, respirations 16, blood pressure 116/49. HEENT: Normocephalic, atraumatic. No xanthelasma. Pupils equal, round, reactive to light. NECK: Supple. Jugular is mildly full. CVP appears to be 7 to 8. LUNGS: Clear to auscultation bilaterally anteriorly and posteriorly. CARDIAC: S1, S2. No S3, S4. Normal sinus rhythm. ABDOMEN: Positive bowel sounds. EXTREMITIES: No clubbing, cyanosis or edema. 2+ pulses bilaterally. DIAGNOSTIC STUDIES IMAGING: Chest x-ray shows cardiomegaly, significant decrease in the pulmonary edema bilaterally with interstitial infiltrates which may be largely chronic. LABORATORY: Sodium 137, potassium 5.6, chloride 98, CO2 31, BUN 51, creatinine 1.5, glucose 99, PT 10.3, INR 1.0, PTT 24.7, troponin less than 0.05 and less than 0.05. Hemoglobin 10, hematocrit 31.7, white blood cell count 6.3, platelet count 254. ASSESSMENT AND PLAN 1. No myocardial infarction. 2. Some evidence of low diastolic heart failure: We will give 40 mg of IV Lasix and patient will be DC'd home. The patient's troponin are Unit #: [id number] #: [id number] Patient: CATHY MELLO negative. EKG is stable, no acute changes. She will follow up with Dr. Barnhart in two weeks. The patient was seen by [facility] and plan was instituted. Dictated by... Abelino ZamoraPIona. VIANEY/robert TD: 11/16/2016 12:47 JOB #: [id number] CONSULTATION REPORT Page 1 of 1 X X CONSULTATION REPORT
[~2016-11-16 06:45] MED LIST changes: +ACETAMINOPHEN325 MG PO; +ANASTROZOLE1 MG PO; +ASPIRIN81 M2 PO; +AZITHROMYCIN250 MG PO; +CEFTIN PO; +CENTRUM SILVER1 EAC3 PO; +COREG12.5 MG PO; +DARVOCET PO; +ENTRESTO 24 MG1 EACH PO; +IMDUR-ER30 M3 PO; +LIPITOR20 MG PO; +NOVOLOG100 U/ML SUBQ
[2016-11-16 07:14] LABS: BASOPHIL# 0.1 X10e3 (0-0.3); BASOPHIL% 0.8 % (0-2.5); EOSINOPHIL# 0.2 X10e3 (0-0.7); EOSINOPHIL% 2.5 % (0.0-7.0); HEMATOCRIT 31.7 % (35.0-45.0); LYMPHOCYTE# 0.9 X10e3 (1.0-3.5); LYMPHOCYTE% 14.5 % (17.0-45.0); MEAN CELL VOLUME 86.1 FL (83-96); MEAN CORPUSCULAR HEMOGLOBIN 27.3 PG (28-34); MEAN CORPUSCULAR HGB CONC 31.7 g/dL (30-36); MEAN PLATELET VOLUME 7.6 FL (6.5-11.5); MONOCYTE# 0.3 X10e3 (0-1.0); MONOCYTE% 5.4 % (3.0-12.0); NEUTROPHIL# 4.8 X10e3 (1.5-7.1); NEUTROPHIL% 76.8 % (40-75); PLATELET COUNT 254 X10e3 (140-420); RED BLOOD COUNT 3.68 X10e (3.90-5.30); RED CELL DISTRIBUTION WIDTH 16.2 % (11.0-15.5); WHITE BLOOD COUNT 6.3 X10e3 (4.0-10.5)
[2016-11-16 07:19] LABS: DIFF IND NO
[2016-11-16 07:24] LABS: POC - CKMB 1.2 ng/mL (0.0-7.9); POC - TROPONIN <0.05 ng/mL (<=0.05)
[2016-11-16 07:26] LABS: PARTIAL THROMBOPLASTIN TIME 24.7 SECONDS (23.5-31.3); PROTHROMBIN TIME (PATIENT) 10.3 SECONDS (9.6-11.5)
[2016-11-16 07:42] LABS: ALBUMIN SERUM 3.6 g/dL (3.5-5.0); BILIRUBIN, DIRECT 0.1 mg/dL (0.0-0.2); BILIRUBIN,INDIRECT 0.5 mg/dL (0.0-0.9); BILIRUBIN,TOTAL 0.6 mg/dL (0.2-2.0); CALCIUM SERUM 9.1 mg/dL (8.4-10.2); CREATININE SERUM 1.5 mg/dL (0.6-1.4); GLOM FILT RATE Estimated 31.7 mL/min (>60); PROTEIN TOTAL SERUM 6.7 g/dL (6.0-8.3)
[2016-11-16 07:46] LABS: POTASSIUM 5.6 mmol/L (3.5-5.1)
[2016-11-16 09:37] LABS: POC - CKMB <1.0 ng/mL (0.0-7.9); POC - TROPONIN <0.05 ng/mL (<=0.05)
== END 2016-11-16 15:07 | disposition home or self-care (01) ==
LOC: CED 06:45
PROVIDERS: Emergency Medicine
DX: R07.9 Chest pain, unspecified (principal); E87.5 Hyperkalemia; E11.9 Type 2 diabetes mellitus without complications; I25.10 Atherosclerotic heart disease of native coronary artery without angina pectoris; I25.2 Old myocardial infarction; I11.0 Hypertensive heart disease with heart failure; I50.9 Heart failure, unspecified; J44.9 Chronic obstructive pulmonary disease, unspecified; Z88.8 Allergy status to other drugs, medicaments and biological substances; Z88.0 Allergy status to penicillin; Z88.2 Allergy status to sulfonamides; Z79.4 Long term (current) use of insulin; Z79.82 Long term (current) use of aspirin; Z79.899 Other long term (current) drug therapy
CPT/HCPCS: 36415; 71010; 80048; 80076; 82553; 83880; 84484; 85025; 85610; 85730; 93005; 96374; 99284; J1940

== ENCOUNTER 2016-11-18 20:15 | Emergency (ER) | payer MEDICARE, BC ==
[2016-11-18 23:50] LABS: URINE SOURCE CLEAN CATCH
[2016-11-19] LABS: URINE APPEARANCE CLEAR; URINE BILIRUBIN NEG (NEG); URINE BLOOD NEG (NEG); URINE COLOR YELLOW; URINE GLUCOSE NEG (NEG); URINE KETONE NEG (NEG); URINE LEUKOCYTE ESTERASE 3+ (NEG); URINE NITRATE NEG (NEG); URINE PROTEIN NEG (NEG); URINE SPECIFIC GRAVITY 1.015 (1.003-1.035); URINE UROBILINOGEN 0.2 MG/DL (NEG)
[2016-11-19 00:05] LABS: CULTURE INDICATED? YES; U HYALINE CASTS AUWI 0-2 /[LPF]; URINE BACTERIA AUWI NEG (NEGATIVE); URINE SQUAMOUS EPITHELIAL CELL OCC /[HPF]; UWBCS1 AUWI 25-50 (0-5)
[2016-11-19 00:33] LABS: BASOPHIL% 0.7 % (0-2.5); EOSINOPHIL# 0.1 X10e3 (0-0.7); EOSINOPHIL% 1.7 % (0.0-7.0); HEMOGLOBIN 9.5 gm/dL (12.0-16.0); LYMPHOCYTE# 1.1 X10e3 (1.0-3.5); LYMPHOCYTE% 19.2 % (17.0-45.0); MEAN CELL VOLUME 85.9 FL (83-96); MEAN CORPUSCULAR HEMOGLOBIN 27.3 PG (28-34); MEAN CORPUSCULAR HGB CONC 31.8 g/dL (30-36); MEAN PLATELET VOLUME 8.2 FL (6.5-11.5); MONOCYTE# 0.4 X10e3 (0-1.0); MONOCYTE% 6.2 % (3.0-12.0); NEUTROPHIL# 4.3 X10e3 (1.5-7.1); NEUTROPHIL% 72.2 % (40-75); PLATELET COUNT 243 X10e3 (140-420); RED BLOOD COUNT 3.49 X10e (3.90-5.30); RED CELL DISTRIBUTION WIDTH 16.3 % (11.0-15.5); WHITE BLOOD COUNT 5.9 X10e3 (4.0-10.5)
[2016-11-19 00:35] LABS: DIFF IND NO
[2016-11-19 00:57] LABS: ALBUMIN SERUM 3.6 g/dL (3.5-5.0); ALKALINE PHOSPHATASE 97 U/L (32-92); ALT (SGPT) 10 U/L (10-40); AST (SGOT) 14 U/L (10-42); BILIRUBIN,TOTAL 0.5 mg/dL (0.2-2.0); BLOOD UREA NITROGEN 54 mg/dL (9-23); BUN/CREATININE RATIO 31.76; CALCIUM SERUM 8.5 mg/dL (8.4-10.2); CARBON DIOXIDE 29 mmol/L (22-31); CHLORIDE 95 mmol/L (100-111); CREATININE SERUM 1.7 mg/dL (0.6-1.4); GLOM FILT RATE Estimated 27.2 mL/min (>60); GLUCOSE FASTING 208 mg/dL (70-110); POTASSIUM 4.4 mmol/L (3.5-5.1); PROTEIN TOTAL SERUM 6.8 g/dL (6.0-8.3); SODIUM 131 mmol/L (135-145)
[2016-11-19 00:58] LABS: BILIRUBIN, DIRECT <0.1 mg/dL (0.0-0.2); BILIRUBIN,INDIRECT 0.4 mg/dL (0.0-0.9)
== END 2016-11-19 07:00 | disposition home or self-care (01) ==
LOC: CED 20:15
PROVIDERS: Emergency Medicine
DX: C79.51 Secondary malignant neoplasm of bone (principal); C50.919 Malignant neoplasm of unspecified site of unspecified female breast; E11.9 Type 2 diabetes mellitus without complications; I10 Essential (primary) hypertension; Z88.0 Allergy status to penicillin; Z88.8 Allergy status to other drugs, medicaments and biological substances; Z79.4 Long term (current) use of insulin; Z79.82 Long term (current) use of aspirin; Z79.899 Other long term (current) drug therapy
CPT/HCPCS: 36415; 80048; 80076; 81003; 85025; 87086; 96374; 96376; 99284; J1170